=== PATIENT | male | born 1955 | race Caucasian/White ===

== ENCOUNTER → 2024-10-14 | Outpatient (CLI) | payer MEDICARE, SELFPAY ==
--- NOTE | 2024-10-14 08:55 | MRI_ITS ---
PROCEDURE: SPINE LUMBAR (ROUTINE) 10/14/2024 REASON FOR EXAM: PAIN TECHNIQUE: Multiplanar and multisequence images were obtained without IV contrast administration. FINDINGS: A mild rightward curvature noted. Appearance of multilevel spondylosis/discogenic change of the cervical spine is not well visualized what appears to be C4 through C7. No evidence of acute fracture. Susceptibility artifact from hardware, posterior fusion and bilateral transpedicular screws L3 and L4 limiting the evaluation. There appears to be laminectomies L3 through L5 and possibly partial at L2. Conus Medullaris: Conus appears to terminate at T12-L1 and appears within limits. Cauda equina appears within limits. L1-2: Appears within limits L2-3: Adjacent susceptibility artifact from L3 hardware. Question possibility of left-sided posterior Modic type degenerative endplate changes versus susceptibility artifact from hardware. A mild broad- based disc bulge is present mildly greater towards the left foramina which in combination with hypertrophic facet synovial appearing change results in a left-sided foraminal narrowing and possibly impinging on the exiting left L2 nerve for example sagittal 11. No right-sided foraminal narrowing. Bilateral facet hypertrophic change causes bilateral posterolateral canal narrowing without significant appearing compression for example axial 8. L3-4: Appearance of disc desiccation with mild loss of disc height. No significant appearing central or foraminal narrowing identified. L4-5: Minimal anterolisthesis L4 on L5. Disc desiccation with moderate loss of disc height appears greater towards the right side. Broad-based disc bulge without significant appearing central or foraminal narrowing identified. T1 low and T2 bright and stir bright Modic type endplate degenerative changes suggested. L5-S1: Spondylosis/discogenic change with a mild central disc bulge without significant appearing central or foraminal narrowing. Limited views of the retroperitoneum appear unremarkable. MRI/Spine Lumbar (Routine) IMPRESSION: Susceptibility artifact from hardware, posterior fusion and bilateral transpedi cular screws L3 and L4 limiting the evaluation. There appears to be laminectomies L3 through L5 and possibly partial at L2. Multilevel spondylosis/discogenic change as above. Reading Location: [id number]
== END | disposition home or self-care (01) ==
PROVIDERS: PCP Nurse Practitioner Family; Referring Provider Student in an Organized Health Care Education/Training Program; Visit Provider Student in an Organized Health Care Education/Training Program
DX: M48.061 Spinal stenosis, lumbar region without neurogenic claudication (principal); M51.369 Other intervertebral disc degeneration, lumbar region without mention of lumbar back pain or lower extremity pain
CPT/HCPCS: 72148

== ENCOUNTER 2024-12-25 14:48 | Inpatient (IN) | payer MEDICARE, SELFPAY ==
[2024-12-15 10:40] LABS: Hematocrit 48.1 % (40-54); Hemoglobin 16.4 g/dL (13.0-16.5); Immature Granulocytes Count 0.040 X10^3/uL (0.0-0.0); Mean Corp Hgb Conc 34.1 g/dL (32-36); Mean Corpuscular Volume 88.6 fL (80-94); Mean Platelet Vol. 8.6 fl (6.2-12.0); NRBC Flagged by Analyzer 0 % (0-5); Platelet Count 355 K/mm3 (150-450); RBC Distribution Width CV 14.5 % (11.6-14.6); RBC Distribution Width SD 46.5 fl (35.1-43.9); Red Blood Count 5.43 M/mm3 (4.6-6.2); White Blood Count 6.5 K/mm3 (4.4-11.0)
[2024-12-15 11:04] LABS: Partial Thromboplast Time 26.0 Seconds (24.1-36.2); Prothrombin Time (Protime)PT. 12.0 SECONDS (11.7-14.9)
[2024-12-15 11:23] LABS: AST(SGOT) 23 U/L (<=37); Alanine Aminotransfer ALT/SGPT 18 U/L (<=46); Albumin, Serum 4.1 g/dL (3.4-4.8); Alkaline Phosphatase 75 U/L (40-129); Bilirubin, Direct 0.26 mg/dL (0.00-0.30); Globulin 3.0 g/dL (2.2-4.2); Magnesium 1.6 mg/dL (1.5-2.2)
[2024-12-15 11:48] LABS: AST(SGOT) 23 U/L (<=37); Alanine Aminotransfer ALT/SGPT 18 U/L (<=46); Albumin, Serum 4.1 g/dL (3.4-4.8); Alkaline Phosphatase 75 U/L (40-129); Anion Gap 14 (5-15); BUN 11 mg/dL (4-19); BUN/Creat Ratio 12.5 RATIO (10-20); Calcium,Total 9.9 mg/dL (7.6-11.0); Carbon Dioxide 19.8 mmol/L (21.0-32.0); Chloride 99 mmol/L (98-108); Globulin 2.9 g/dL (2.2-4.2); Glucose 166 mg/dL (70-99); HIV Nonreactive (Nonreactive); Hepatitis C Antibody Nonreactive (Nonreactive); Potassium 4.2 mmol/L (3.3-5.1)
--- NOTE | 2024-12-18 14:55 | PAT.ANE_ITS ---
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 When Was Last Pacemaker Check QUESTION #4 FULL TEXT: You/Your Family Experience fever (hyperthermia) with Anesthesia Last Oral Intake Last Oral intake: Last Oral Intake NPO since Meds taken in AM with sips of water? Meds patient instructed to take am of surgery PONV PONV - insurance claims examiner: PONV - insurance claims examiner Female No 12/08/24 09:52 HX of Motion Sickness No 12/08/24 09:52 HX of N/V After Surgery No 12/08/24 09:52 Non-Smoker Yes 12/08/24 09:52 Duration of Surgery greater Yes 12/08/24 09:52 than 60 minutes Number of Risk Factors 2 12/08/24 09:52 PONV Score Moderate Risk 12/08/24 09:52 Height & Weight Height & Weight: Anesthesia: Height & Weight Height 6 ft 10/24/24 08:28 Respiratory Assessment Respiratory Assessment - insurance claims examiner: Respiratory Tract Infection Hx - insurance claims examiner Hx Respiratory Tract Infection No 12/08/24 09:52 STOP Sleep Apnea STOP Sleep Apnea - insurance claims examiner: STOP Sleep Apnea - insurance claims examiner Hx Hypertension Yes: CONTROLLED WITH MED 12/08/24 09:52 Hx Sleep Apnea No 12/08/24 09:52 CPAP BIPAP Do you snore loudly (louder No 12/08/24 09:52 than talking or can be heard Do you often feel tired/ No 12/08/24 09:52 fatigued/ sleepy during daytime? Has anyone observed you stop No 12/08/24 09:52 breathing during sleep? STOP Results Negative 12/08/24 09:52 QUESTION #5 FULL TEXT : Do you snore loudly (louder than talking or can be heard through closed doors)? 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 Specify any problems Hx of Preganancy in last 3 N/A 12/08/24 09:52 Months Nurse Filling Out Transfusion DSCHRIBER 12/08/24 09:52 & Questions: Date: 12/08/24 12/08/24 09:52 Time: 09:54 12/08/24 09:52 Patient unable to answer at this time (ie. confused, unrespo /Reproduction History /Reproductive History - insurance claims examiner: /Reproductive Hx- insurance claims examiner Hx Now No 12/08/24 09:52 Gestational Age (in weeks): EDC: Hx Hx Para Hx Section SAB No 12/08/24 09:52 PFSH Medical History (Updated 12/08/24 @ 10:03 by Lucila Vega) Wears glasses Wears dentures Alcohol use Redness of skin Insulin dependent diabetes mellitus Arthritis High cholesterol Restless legs Back pain Dietary restriction Heartburn Former smoker Leg cramps History of edema Neuropathy Hypertension Home Medications ?Medication ?Instructions ?Recorded ?Last Taken ?Type insulin glargine 100 unit/mL 10 unit subcut BID DIABET ES 09/15/24 Unknown History subcutaneous solution (Lantus U-100 Insulin) insulin lispro 100 unit/mL 1 sliding scale dose subcut 09/15/24 Unknown History subcutaneous pen USEASDIRECTD DIABETES lisinopril 5 mg tablet 5 mg PO QDAY BP 09/15/24 Unk nown History metformin 500 mg tablet 500 mg PO BID DIABETES 09/15 Unknown History lorazepam 1 mg tablet (Ativan) 1 mg PO BID PRN claustr ophobia #2 09/20/24 Unknown Rx tabs Allergy/AdvReac Type Severity Reaction Status Date / Time meperidine (From Demerol) Allergy Mild Nausea/Vom/ Verified 12/08/24 09:48 Diarrhea Surgical History (Updated 12/08/24 @ 10:03 by Lucila Vega) History of back surgery Hx of left cataract extraction Hx of right cataract extraction History of lumbosacral spine surgery H/O left knee surgery H/O right knee surgery Social History Smoking Status: Former smoker alcohol intake: current alcohol intake frequency: 0-2 drinks per day substance use type: does not use Audit: Pertinent Findings Pertinent Findings EKG Perinent findings: December 15, 2024. Normal sinus rhythm. Possible left atrial enlargement. Left bundle branch block. Recommendation Anesthesia Recommendation Anesthesia recommendation: OPTIMIZED for anesthesia
[2024-12-25] VITALS (18 sets, daily range): BP systolic 137–169; BP diastolic 72–100; PULSE 75–102; RESP 16–20; TEMP 36.4–37.2; O2SAT 95–99; BMI 24.8
--- OUTSIDE RECORDS SUMMARY | 2024-12-25 05:16 | XMS RPT_ITS | CCD ---
Author Organization [facility] Care Team Providers Care Winch Runner Name Role Phone Ang Ramirez MD Unavailable BALA RUEDA-COMMUNITY SERVICE PATROL OFFICERSAIRA Primary Care Physicia n BALA PARTITION ASSEMBLY MACHINE OPERATOR-SCOTT, SAIRA Roberts Primary Care Unava sara VIZCAINO MD, ANT Lane Attending Unavailable Maria A Ruiz Attending Provider Dr. Jacek Deleon MD Attending Provider Maria A Ruiz Referring Provider Bala CULTURED MARBLE PRODUCTS MAKER-CSaira Primary Care Provider Bala C[employer]URED [employer] MAKER-CSaira Referring Provider [phone] SAIRA PECK CNP Primary Care Unavailable SAIRA PECK CNP Consulting Unavailable SAIRA PECK CNP Attending Unavailable SAIRA PECK CNP Admitting Unavailable PROVIDER, UNKNOWN Consulting Unavailable PROVIDER, UNKNOWN Consulting Unavailable SAIRA PECK CNP Primary Care Unavailable SAIRA PECK CNP Consulting Unavailable SAIRA PECK CNP Attending Unavailable SAIRA PECK CNP Admitting Unavailable PROVIDER, UNKNOWN Consulting Unavailable PROVIDER, UNKNOWN Consulting Unavailable SAIRA PECK CNP Primary Care Unavailable SAIRA PECK CNP Consulting Unavailable SAIRA PECK CNP Attending Unavailable SAIRA PECK CNP Admitting Unavailable PROVIDER, UNKNOWN Consulting Unavailable PROVIDER, UNKNOWN Consulting Unavailable Doron MORILLO, Dr. Londono Attending Provider Saira Peck Referring Unavailable Bry Sal Attending Unavailable Saira Peck Primary Care Unavailable Maria A Chung Attending Unavailable Jacek Deleon Attending Unavailable Bry Sal Referring Unavailable Carmela Ace Attending Unavailable Saira Peck Primary Care Unavailable Bry Sal Admitting Unavailable Bry Sal Attending Unavailable Doron Bry Referring Unavailable Saira Peck Primary Care Unavailable Saira Peck Primary Care Unavailable Maria A Chung Attending Unavailable Maria A Chung Referring Unavailable Saira Peck Referring Unavailable Maria A Chung Attending Unavailable Saira Peck Primary Care Unavailable Allergies Allergy Classification Reported Allergen(s) Allergy Type Date of Onset Reaction(s) Facility (1 source) Meperidine Drug Allergy 2 Years ago, had cold sweats and light headedness. [facility] Work Phone: (3 sources) Meperidine; Translations: [meperidine] Drug Allergy 5 Nausea/Vom/Diar [facility] (1 source) Meperidine Drug Allergy [facility] Repository (1 source) Meperidine Drug Allergy 5 [facility] Repository Medications Current Medications Medication Drug Class(es) Dates Sig (Normalized) Sig (Original) 3 ml insulin aspart, human 100 unt/ml pen injector (2 sources) Insulin Analog Start: 01-21-2020 NovoLOG FlexPen 100 units/mL injectable solution Sliding Scale, Subcutaneous, TIDAC Start Date: 01/21/20 Status: Ordered NOVOLOG RELION 1 00 UNIT/ML SOLN 18 unit subcutaneously once a day insulin aspart u-100 [id number] Betsey Pulido PULP COOKER 3 ml insulin detemir 100 unt/ml pen injector (2 sources) Insulin Analog Start: 01-21-2020 inject 1 dose by subcutaneous injection once daily at bedtime Levemir FlexTouch 100 units/mL 3 mL Pen Dose : 20 unit(s) =, Subcutaneous, qHS Start Date: 01/21/20 Status: Ordered inject 20 [IU] by rodriguez bcutaneous injection once daily LEVEMIR 100 UNIT/ML SOLN 20 unit subcutaneously once a day insulin detemir u-100 [id number] Betsey Pulido PULP COOKER Insulin Glargine (Lantus U-1 00 Insulin) 100 unit/mL solution (2 sources) Start: 09-15-2024 Insulin Glargi ne (Lantus U-100 Insulin) 100 unit/mL solution Active 10 U SC TWICE A DAY September 15, 2024 12:00am DIABETES Start: 09-15-2024 Insulin Glargi ne (Lantus U-100 Insulin) 100 unit/mL solution Active 10 U SC TWICE A DAY September 15, 2024 12:00am 3 ml insulin lispro 100 unt/ml pen injector (2 sources) Insulin Analog Start: 09-15-2024 Insulin Lispro 100 unit/mL insulin pen Active 1 sliding scale dose SC Use as Directed September 15, 2024 12:00am DIABETES lisinopril 5 mg oral tablet (4 sources) Angiotensin Converting Enzyme Inhibitor Start: 09-15-2024 take 1 tablet by mouth once daily Lisinopril 5 mg tablet Active 5 mg PO daily September 15, 2024 12:00am BP Start: 01-21-2020 lisinopril 5 m g oral tablet Dose : 5 mg = 1 tab(s), Oral, qAM Start Date: 01/21/20 Status: Ordered LORazepam 1 mg oral tablet (2 sources) Benzodiazepine Start: 09-20-2024 Lorazepam (Ati van) 1 mg tablet Active 1 mg PO TWICE A DAY as needed for claustrophobia 2 0 September 20, 2024 12:00am take 1 tablet one hour before the MRI, take second tablet when you arrive for the MRI metFORMIN hydrochloride 500 mg oral tablet (3 sources) Biguanide Start: 09-15-2024 take 1 tablet by mouth twice daily Metformin 500 mg tablet Active 500 mg PO TWICE A DAY September 15, 2024 12:00am DIABETES take 1 tablet by mouth twice edward ly METFORMIN HCL 1000 MG TABS 1 tablet by mouth twice a day metformin [id number] Betsey Pulido LPN Multiple Vitamins oral tablet (1 source) Start: 01-21-2020 take 1 tablet by mouth once daily Multiple Vitamins oral tablet Dose = 1 tab(s), Oral, qDay Start Date: 01/21/20 Status: Ordered Completed/Discontinued Medications Medication Drug Class(es) Dates Sig (Normalized) Sig (Original) methocarbamol 500 mg oral tablet (2 sources) Muscle Relaxant Start: 09-15-2024 End: 12-08-2024 take 1 tablet by mouth three times daily as needed for pain Methocarbamol 500 mg tablet Discontinued 500 mg PO THREE TIMES A DAY as needed for pain/spasms 60 0 September 15, 2024 12:00am December 08, 2024 9:49am Problems Active Problems Problem Classification Problem Date Documented Date Episodic/Chronic Diabetes mellitus without complication (2 sources) Latent autoimmune diabetes mellitus in adult; Translations: [Other specified diabetes mellitus without complications] 09-15-2024 Chronic Essential hypertension (2 sources) Hypertensive disorder; Translations: [Essential (primary) hypertension] 09-15-2024 Chronic Other acquired deformities (1 source) Scoliosis of lumbar spine; Translations: [Scoliosis, unspecified] Onset: 09-08-2021 09-08-2021 Chronic Other acquired deformities (1 source) Lumbar spondylolisthesis; Translations: [Spondylolisthesis, lumbar region] Onset: 09-08-2021 09-08-2021 Episodic Other connective tissue disease (5 sources) History of lumbar fusion; Translations: [Arthrodesis status] 09-15-2024 Episodic Spondylosis; intervertebral disc disorders; other back problems (7 sources) Disorder of lumbar spine; Translations: [Adjacent segment disease of lumbar spine with history of fusion procedure] 09-15-2024 Chronic Spondylosis; intervertebral disc disorders; other back problems (11 sources) Stenosis of lumbar vertebral foramen; Translations: [Spinal stenosis, lumbar region without neurogenic claudication] Onset: 08-15-2021 09-08-2021 Episodic Unclassified (2 sources) M48.061 - Spinal stenosis, lumbar region without neurogenic claudication,M51.369 - Other intervertebral disc degeneration, lumbar region without mention of lumbar back pain or lower extremity pain Unclassified (1 source) Spinal stenosis of lumbar region without neurogenic claudication Unclassified (1 source) Degeneration of intervertebral disc of lumbar region Unclassified (1 source) Low back pain, unspecified; Translations: [Low back pain, unspecified] Onset: 10-09-2024 Unclassified (1 source) Other intervertebral disc degeneration, lumbar region without mention of lumbar back pain or lower extremity pain; Translations: [Other intervertebral disc degeneration, lumbar region without mention of lumbar back pain or lower extremity pain] Onset: 09-15-2024 Past or Other Problems Problem Classification Problem Date Documented Da te Episodic/Chronic Fluid and electrolyte disorders (2 sources) Hypo-osmolality and or hyponatremia; Translations: [Hypo-osmolality and hyponatremia] Onset: 02-23-2024 Episodic Unclassified (1 source) Problem Results Test Name Value Interpretation Reference Range Facility Orthopedic Visit Reporton Orthopedic Visit Report [facility] [address] [place] [address] OFFICE VISIT Date of Service: 12/19/24 MR#: [id number] Acct: [id number] Name: MARIELLA WINCHESTER Rep #: [id number] : 1955 Provider: Dr. Bry Sal MD Age/Sex: 68/M Location: [facility] Status: Signed Intake Vital Signs 10/24/24 08:28 12/19/24 08:55 Height 6 ft 6 ft Weight: 180 lb 180 lb BMI 24.4 24.4 Intake Visit Reasons: lumbar spine Chief Complaint: lumbar spine Pre op Accompanied by: Self Is patient in pain?: Yes Pain scale (1-10): 5 Allergies meperidine (From Demerol) Allergy (Mild, Verified 12/19/24 09:01) Nausea/Vom/Diarrhea Medications ???Medication ???Instructions ???Recorded ???Confirmed ???Type insulin glargine 100 unit/mL 10 unit subcut BID DIABETES 12/19/24 History subcutaneous solution (Lantus U-100 Insulin) insulin lispro 100 unit/mL 1 sliding scale dose subcut 12/19/24 History subcutaneous pen USEASDIRECTD DIABETES lisinopril 5 mg tablet 5 mg PO QDAY BP 09/15/24 12/19/24 History metformin 500 mg tablet 500 mg PO BID DIABETES 09/15/24 History lorazepam 1 mg tablet (Ativan) 1 mg PO BID PRN claustrophobia #2 09/20/24 12/19/24 Rx tabs Have you fallen in the past year?: No PFSH Medical History Wears glasses Wears dentures Alcohol use Redness of skin Insulin dependent diabetes mellitus Arthritis High cholesterol Restless legs Back pain Dietary restriction Heartburn Former smoker Leg cramps History of edema Neuropathy Hypertension Surgical History History of back surgery Hx of left cataract extraction Hx of right cataract extraction History of lumbosacral spine surgery H/O left knee surgery H/O right knee surgery Social History Smoking Status: Former smoker alcohol intake: current alcohol intake frequency: 0-2 drinks per day substance use type: does not use HPI lumbar spine Details: This documentation accurately reflects the service provided and the decisions made by me, Dr. Bry Sal MD 12/19/24 0855. Part of today???s visit was documented by Angelica Loco MA, acting as scribe. MARIELLA WINCHESTER is a 68 year old M here today for lumbar spine pre op. Patient would like to know more about the surgery. He would like to know what he can and can't do after the surgery. Patient states that lately his pain has been more aggravating a little bit more. The pain is in the same spot on the right side of the lower back. He hasn't had any recent injections. Patient hasn't done any recent physicla therapy. The patient is a 68-year-old male presenting for evaluation and management of worsening lumbar spinal stenosis symptoms and preparation for upcoming spinal surgery. The patient reports increased difficulty in finding comfortable positions due to worsening pain, which now occurs even when lying down. The pain primarily affects the right side, radiating to the thigh and occasionally down the leg, but not below the knee. He is limited to walking approximately 100 yards before needing to rest due to pain and tightness in the back. The patient has a history of lumbar fusion surgery at L3-4 performed 20 years ago due to similar symptoms, although the current symptoms are more severe. Previous interventions included a laminectomy to relieve nerve compression. The patient also reports significant knee osteoarthritis, with a history of multiple surgeries including patellar and meniscal repairs, but no knee replacements. He experiences swelling and requires assistance from railings when navigating stairs due to knee pain. The patient has diabetes mellitus, managed with insulin, with a recent HbA1c of 6.5%. He denies smoking and reports good nutritional intake, including calcium supplements. - Musculoskeletal: Reports worsening back pain, radiating to the right thigh, with difficulty walking more than 100 yards. Denies pain below the knee. - Musculoskeletal: Reports knee pain with swelling, requiring assistance from railings when using stairs. - Endocrine: Reports diabetes mellitus, managed with insulin. - General: Denies smoking. Attestation: Documentation on this patient encounter was supported using ambient scribe technology/ voice AI technology. The patient consented to recording for the purpose of documenting the encounter. Provider reviewed content of the generated note prior to signature. 10/24/24: MARIELLA WINCHESTER is a 68 year old M here today for lumbar spine MRI review. Patient would like to go over the MRI to discuss what the next step is. He den (more content not included)... 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 When Was Last Pacemaker Check QUESTION #4 FULL TEXT: You/Your Family Experience fever (hyperthermia) with Anesthesia Last Oral Intake Last Oral intake: Last Oral Intake NPO since Meds taken in AM with sips of water? 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 Female No 12/08/24 09:52 HX of Motion Sickness No 12/08/24 09:52 HX of N/V After Surgery No 12/08/24 09:52 Non-Smoker Yes 12/08/24 09:52 Duration of Surgery greater Yes 12/08/24 09:52 than 60 minutes Number of Risk Factors 2 12/08/24 09:52 PONV Score Moderate Risk 12/08/24 09:52 Height Weight Height Weight: Anesthesia: Height Weight Height 6 ft 10/24/24 08:28 Respiratory Assessment Respiratory Assessment - rock climbing instructor: Respiratory Tract Infection Hx - rock climbing instructor Hx Respiratory Tract Infection No 12/08/24 09:52 STOP Sleep Apnea STOP Sleep Apnea - rock climbing instructor: STOP Sleep Apnea - rock climbing instructor Hx Hypertension Yes: CONTROLLED WITH MED 12/08/24 09:52 Hx Sleep Apnea No 12/08/24 09:52 CPAP BIPAP Do you snore loudly (louder No 12/08/24 09:52 than talking or can be heard Do you often feel tired/ No 12/08/24 09:52 fatigued/ sleepy during daytime? Has anyone observed you stop No 12/08/24 09:52 breathing during sleep? STOP Results Negative 12/08/24 09:52 QUESTION #5 FULL TEXT : Do you snore loudly (louder than talking or can be heard through closed doors)? 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 Specify any problems Hx of Preganancy in last 3 N/A 12/08/24 09:52 Months Nurse Filling Out Transfusion DSCHRIBER 12/08/24 09:52 Questions: Date: 12/08/24 12/08/24 09:52 Time: 09:54 12/08/24 09:52 Patient unable to answer at this time (ie. 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: /Reproduct pavithra Hx- rock climbing instructor Hx Now No 12/08/24 09:52 Gestational Age (in weeks): EDC: Hx Hx Para Hx Section SAB No 12/08/24 09:52 [facility] Medical History (Updated 12/08/24 @ 10:03 by Lucila Vega) Wears glasses Wears dentures Alcohol use Redness of skin Insulin dependent diabetes mellitus Arthritis High cholesterol Restless legs Back pain Dietary restriction Heartburn Former smoker Leg cramps History of edema Neuropathy Hypertension Home Medications ???Medication ???Instructions ???Recorded ???Last Taken ???Type insulin glargine 100 unit/mL 10 unit subcut BID DIABETES Unknown History subcutaneous solution (Lantus U-100 Insulin) insulin lispro 100 unit/mL 1 sliding scale dose subcut Unknown History subcutaneous pen USEASDIRECTD DIABETES lisinopril 5 mg tablet 5 mg PO QDAY BP 09/15/24 Unknown H istory metformin 500 mg tablet 500 mg PO BID DIABETES 09/15/24 Un known His (more content not included)... Normal [facility] Hepatitis A AB, Totalon 11-28 HEPATITIS A,TOT Negative Normal Negative [facility] Comment on above: Order Comment: SEND CBC, CMP TO Result Comment: Comm ent: The HAV total antibody assay detects both IgG and IgM but does not differentiate between them. A negative result suggests susceptibility to infection. A positive result could be due to vaccination, previously resolved infection or active infection. Testing for HAV IgM should be performed if active HAV infection is suspected. [facility] offers profiles that will automatically reflex positive HAV total antibody results to IgM (e.g., panel #[id number] HAV Antibody w/ Rfx). Performed at: [address] [id number] Moving Picture Operator: Michael Ba PhD, Phone: [phone] Performed By: #### B TSPAT, L3890.6006, L3890.3521, L501.9985, L3100.0300, M100.651, L500.4050, L100.0100, L3890.6202 ####[facility] [address] [place], [place], [id number] MRSA/SAID NASAL SCREENon MRSA+SAID SCRN SEND CBC, CMP TO Reason for Exam: Surgery MRSA MRSA Negative S. AUREUS S. aureus PositiveA Normal [facility] Comment on above: Performed By: #### B TSPAT, L3890.6006, L3890.6301, L501.9985, L3100.0300, M100.651, L500.4050, L100.0100, L3890.6202 ####[facility] [address] [place], [address] CBC W/Diff, Automatedon 11-28 Absolute Lymph 0.68 X10 3/uL Low 0.83-4.51 [facility] Comment on above: Order Comment: SEND CBC, CMP TO Performed By: #### B TSPAT, L3890.6006, L3890.6301, L501.9985, L3100.0300, M100.651, L500.4050, L100.0100, L3890.6202 #### [facility] [address] [place], [address] Absolute Neut 4.8 X10 3/uL Normal 2.0-7.7 [facility] Comment on above: Order Comment: SEND CBC, CMP TO Performed By: #### B TSPAT, L3890.6006, L3890.6301, L501.9985, L3100.0300, M100.651, L500.4050, L100.0100, L3890.6202 #### [facility] [address] [place], [address] Basophils/100 WBC (Bld) 0.9 % Normal 0-1 [facility] Comment on above: Order Comment: SEND CBC, CMP TO Performed By: #### B TSPAT, L3890.6006, L3890.6301, L501.9985, L3100.0300, M100.651, L500.4050, L100.0100, L3890.6202 #### [facility] [address] [place], [address] Eosinophils/100 WBC (Bld) 4.0 % Normal 0-5 [facility] Comment on above: Order Comment: SEND CBC, CMP TO Performed By: #### B TSPAT, L3890.6006, L3890.6301, L501.9985, L3100.0300, M100.651, L500.4050, L100.0100, L3890.6202 #### [facility] [address] [place], [address] Erythrocyte distribution width (RBC) [Ratio] 14.5 % Normal 11.6-14.6 [facility] Comment on above: Order Comment: SEND CBC, CMP TO Performed By: #### B TSPAT, L3890.6006, L3890.6301, L501.9985, L3100.0300, M100.651, L500.4050, L100.0100, L3890.6202 #### [facility] [address] [place], [address] Hematocrit (Bld) [Volume fraction] 48.1 % Normal 40-54 [facility] Comment on above: Order Comment: SEND CBC, CMP TO Performed By: #### B TSPAT, L3890.6006, L3890.6301, L501.9985, L3100.0300, M100.651, L500.4050, L100.0100, L3890.6202 #### [facility] [address] [place], [address] Hemoglobin (Bld) [Mass/Vol] 16.4 g/dL Normal 13.0-16.5 [facility] Comment on above: Order Comment: SEND CBC, CMP TO Performed By: #### B TSPAT, L3890.6006, L3890.6301, L501.9985, L3100.0300, M100.651, L500.4050, L100.0100, L3890.6202 #### [facility] [address] [place], [address] IG% 0.600 Normal 0.0-0.9 [facility] Comment on above: Order Comment: SEND CBC, CMP TO Result Comment: IG% - Immature Granulocytes (promyelocytes, myelocytes and metamyelocytes) > 1% indicates that a LEFT SHIFT is Present. Performed By: #### B TSPAT, L3890.6006, L3890.6301, L501.9985, L3100.0300, M100.651, L500.4050, L100.0100, L3890.6202 #### [facility] [address] [place], [address] Lymphocytes/100 WBC (Bld) 10.4 % Low 19-41 [facility] Comment on above: Order Comment: SEND CBC, CMP TO Performed By: #### B TSPAT, L3890.6006, L3890.6301, L501.9985, L3100.0300, M100.651, L500.4050, L100.0100, L3890.6202 #### [facility] [address] [place], [address] MCH (RBC) [Entitic mass] 30.2 pg Normal 27.0-32.0 [facility] Comment on above: Order Comment: SEND CBC, CMP TO Performed By: #### B TSPAT, L3890.6006, L3890.6301, L501.9985, L3100.0300, M100.651, L500.4050, L100.0100, L3890.6202 #### [facility] [address] [place], [address] MCHC (RBC) [Mass/Vol] 34.1 g/dL Normal 32-36 [facility] Comment on above: Order Comment: SEND CBC, CMP TO Performed By: #### B TSPAT, L3890.6006, L3890.6301, L501.9985, L3100.0300, M100.651, L500.4050, L100.0100, L3890.6202 #### [facility] [address] [place], [address] MCV (RBC) [Entitic vol] 88.6 fL Normal 80-94 [facility] Comment on above: Order Comment: SEND CBC, CMP TO Performed By: #### B TSPAT, L3890.6006, L3890.6301, L501.9985, L3100.0300, M100.651, L500.4050, L100.0100, L3890.6202 #### [facility] [address] [place], [address] Monocytes/100 WBC (Bld) 11.5 % High 0-10 [facility] Comment on above: Order Comment: SEND CBC, CMP TO Performed By: #### B TSPAT, L3890.6006, L3890.6301, L501.9985, L3100.0300, M100.651, L500.4050, L100.0100, L3890.6202 #### [facility] [address] [place], [address] Neutrophils/100 WBC (Bld) 72.6 % High 47-70 [facility] Comment on above: Order Comment: SEND CBC, CMP TO Performed By: #### B TSPAT, L3890.6006, L3890.6301, L501.9985, L3100.0300, M100.651, L500.4050, L100.0100, L3890.6202 #### [facility] [address] [place], [address] Nucleated RBC (Bld) [#/Vol] 0 10*3/uL Normal 0-5 [facility] Comment on above: Order Comment: SEND CBC, CMP TO Performed By: #### B TSPAT, L3890.6006, L3890.6301, L501.9985, L3100.0300, M100.651, L500.4050, L100.0100, L3890.6202 #### [facility] [address] [place], [address] Platelet mean volume (Bld) [Entitic vol] 8.6 fL Normal 6.2-12.0 [facility] Comment on above: Order Comment: SEND CBC, CMP TO Performed By: #### B TSPAT, L3890.6006, L3890.6301, L501.9985, L3100.0300, M100.651, L500.4050, L100.0100, L3890.6202 #### [facility] [address] [place], [address] Platelets (Bld) [#/Vol] 355 10*3/uL Normal 150-450 [facility] Comment on above: Order Comment: SEND CBC, CMP TO Performed By: #### B TSPAT, L3890.6006, L3890.6301, L501.9985, L3100.0300, M100.651, L500.4050, L100.0100, L3890.6202 #### [facility] [address] [place], [address] RBC (Bld) [#/Vol] 5.43 10*6/uL Normal 4.6-6.2 [facility] Comment on above: Order Comment: SEND CBC, CMP TO Performed By: #### B TSPAT, L3890.6006, L3890.6301, L501.9985, L3100.0300, M100.651, L500.4050, L100.0100, L3890.6202 #### [facility] [address] [place], [address] ( RDW SD 46.5 fl High 35.1-43.9 [facility] Comment on above: Order Comment: SEND CBC, CMP TO Performed By: #### B TSPAT, L3890.6006, L3890.6301, L501.9985, L3100.0300, M100.651, L500.4050, L100.0100, L3890.6202 #### [facility] [address] [place], [address] WBC (Bld) [#/Vol] 6.5 10*3/uL Normal 4.4-11.0 [facility] Comment on above: Order Comment: SEND CBC, CMP TO Performed By: #### B TSPAT, L3890.6006, L3890.6301, L501.9985, L3100.0300, M100.651, L500.4050, L100.0100, L3890.6202 #### [facility] [address] [place], [address] Comprehensive Metabolic Prof nyon 12-15-2024 Albumin [Mass/Vol] 4.1 g/dL Normal 3.4-4.8 [facility] Comment on above: Order Comment: SEND CBC, CMP TO Performed By: #### B TSPAT, L3890.6006, L3890.6301, L501.9985, L3100.0300, M100.651, L500.4050, L100.0100, L3890.6202 #### [facility] [address] [place], [address] Albumin/Globulin [Mass ratio] 1.4 {ratio} Normal 0.9-2.4 [facility] Comment on above: Order Comment: SEND CBC, CMP TO Performed By: #### B TSPAT, L3890.6006, L3890.6301, L501.9985, L3100.0300, M100.651, L500.4050, L100.0100, L3890.6202 #### [facility] [address] [place], [address] ALK PHOS 75 U/L Normal 40-129 [facility] Comment on above: Order Comment: SEND CBC, CMP TO Performed By: #### B TSPAT, L3890.6006, L3890.6301, L501.9985, L3100.0300, M100.651, L500.4050, L100.0100, L3890.6202 #### [facility] [address], [place], [id number] (123) ALT [Catalytic activity/Vol] 18 U/L Normal <=46 [facility] Comment on above: Order Comment: SEND CBC, CMP TO Performed By: #### B TSPAT, L3890.6006, L3890.6301, L501.9985, L3100.0300, M100.651, L500.4050, L100.0100, L3890.6202 #### [facility] [address], [place], [id number] (771) AST [Catalytic activity/Vol] 23 U/L Normal <=37 [facility] Comment on above: Order Comment: SEND CBC, CMP TO Performed By: #### B TSPAT, L3890.6006, L3890.6301, L501.9985, L3100.0300, M100.651, L500.4050, L100.0100, L3890.6202 #### [facility] [address], [place], [id number] (007) Bilirubin [Mass/Vol] 0.63 mg/dL Normal 0.00-1.30 [facility] Comment on above: Order Comment: SEND CBC, CMP TO Performed By: #### B TSPAT, L3890.6006, L3890.6301, L501.9985, L3100.0300, M100.651, L500.4050, L100.0100, L3890.6202 #### [facility] [address] [place], [address] BUN/CRE 12.5 RATIO Normal 10-20 [facility] Comment on above: Order Comment: SEND CBC, CMP TO Performed By: #### B TSPAT, L3890.6006, L3890.6301, L501.9985, L3100.0300, M100.651, L500.4050, L100.0100, L3890.6202 #### [facility] [address] [place], [address] Calcium [Mass/Vol] 9.9 mg/dL Normal 7.6-11.0 [facility] Comment on above: Order Comment: SEND CBC, CMP TO Performed By: #### B TSPAT, L3890.6006, L3890.6301, L501.9985, L3100.0300, M100.651, L500.4050, L100.0100, L3890.6202 #### [facility] [address] [place], [address] Chloride [Moles/Vol] 99 mmol/L Normal 98-108 [facility] Comment on above: Order Comment: SEND CBC, CMP TO Performed By: #### B TSPAT, L3890.6006, L3890.6301, L501.9985, L3100.0300, M100.651, L500.4050, L100.0100, L3890.6202 #### [facility] [address] [place], [address] CO2 [Moles/Vol] 19.8 mmol/L Low 21.0-32.0 [facility] Comment on above: Order Comment: SEND CBC, CMP TO Performed By: #### B TSPAT, L3890.6006, L3890.6301, L501.9985, L3100.0300, M100.651, L500.4050, L100.0100, L3890.6202 #### [facility] [address], [place], [id number] Creatinine [Mass/Vol] 0.86 mg/dL Normal 0.70-1.20 [facility] Comment on above: Order Comment: SEND CBC, CMP TO Performed By: #### B TSPAT, L3890.6006, L3890.6301, L501.9985, L3100.0300, M100.651, L500.4050, L100.0100, L3890.6202 #### [facility] [address], [place], [id number] GAP 14 Normal 5-15 [facility] Comment on above: Order Comment: SEND CBC, CMP TO Performed By: #### B TSPAT, L3890.6006, L3890.6301, L501.9985, L3100.0300, M100.651, L500.4050, L100.0100, L3890.6202 #### [facility] [address], [place], [id number] GFR/1.73 sq M.predicted among non-blacks MDRD (S/P/Bld) [Vol rate/Area] 94 mL/min/{1.73_m2} Normal >60 [facility] Comment on above: Order Comment: SEND CBC, CMP TO Result Comment: mL/m in/1.73m2 CKD-EPI Creatinine Equation (2020) Performed By: #### B TSPAT, L3890.6006, L3890.6301, L501.9985, L3100.0300, M100.651, L500.4050, L100.0100, L3890.6202 #### [facility] [address] [place], [address] Globulin (S) [Mass/Vol] 2.9 g/dL Normal 2.2-4.2 [facility] Comment on above: Order Comment: SEND CBC, CMP TO Performed By: #### B TSPAT, L3890.6006, L3890.6301, L501.9985, L3100.0300, M100.651, L500.4050, L100.0100, L3890.6202 #### [facility] [address] [place], [address] Glucose [Mass/Vol] 166 mg/dL High 70-99 [facility] Comment on above: Order Comment: SEND CBC, CMP TO Performed By: #### B TSPAT, L3890.6006, L3890.6301, L501.9985, L3100.0300, M100.651, L500.4050, L100.0100, L3890.6202 #### [facility] [address] [place], [address] Potassium [Moles/Vol] 4.2 mmol/L Normal 3.3-5.1 [facility] Comment on above: Order Comment: SEND CBC, CMP TO Performed By: #### B TSPAT, L3890.6006, L3890.6301, L501.9985, L3100.0300, M100.651, L500.4050, L100.0100, L3890.6202 #### [facility] [address] [place], [address] Sodium [Moles/Vol] 133 mmol/L Normal 133-145 [facility] Comment on above: Order Comment: SEND CBC, CMP TO Performed By: #### B TSPAT, L3890.6006, L3890.6301, L501.9985, L3100.0300, M100.651, L500.4050, L100.0100, L3890.6202 #### [facility] [address] [place], [place], [id number] T PROT 7.0 g/dL Normal 5.9-8.4 [facility] Comment on above: Order Comment: SEND CBC, CMP TO Performed By: #### B TSPAT, L3890.6006, L3890.6301, L501.9985, L3100.0300, M100.651, L500.4050, L100.0100, L3890.6202 #### [facility] [address] [place] [place], [address] Urea nitrogen [Mass/Vol] 11 mg/dL Normal 4-19 [facility] Comment on above: Order Comment: SEND CBC, CMP TO Performed By: #### B TSPAT, L3890.6006, L3890.6301, L501.9985, L3100.0300, M100.651, L500.4050, L100.0100, L3890.6202 #### [facility] [address] [facility] [place], [place], [id number] HIVon 12-15-2024 HIV Non-Reactive Normal Nonreactive [facility] Comment on above: Order Comment: SEND CBC, CMP TO Result Comment: Non- Reactive Reactive Repeatedly reactive samples must be confirmed according to CDC recommended confirmatory algorithms. The subresults for either HIVAG or AHIV can be used as an aid in the selection of the confirmation algorithm for reactive samples. Send out specimens with Reactive results to [facility] for confirmation. Order the HIV antibody detection and differentiation: lc#[id number] Performed By: #### B TSPAT, L3890.6006, L3890.6301, L501.9985, L3100.0300, M100.651, L500.4050, L100.0100, L3890.6202 ####[facility] [address] [place], [place], [id number] Hemoglobin A1con 12-15-2024 HbA1c (Bld) [Mass fraction] 6.5 % High <=5.6 [facility] Comment on above: Order Comment: SEND CBC, CMP TO Result Comment: Norm al < 5.7 % Prediabetic 5.7 - 6.4 % Diabetic >or= 6.5 % Please note range changes. Performed By: #### B TSPAT, L3890.6006, L3890.6301, L501.9985, L3100.0300, M100.651, L500.4050, L100.0100, L3890.6202 ####[facility] [address] [place], [place], [id number] Hepatitis B Surface Antibody on 12-15-2024 HEP B Surf Ab Non-Reactive Normal [facility] Comment on above: Order Comment: SEND CBC, CMP TO Result Comment: <8.5 mIU/mL: Non-Reactive 8.5<= x <11.5 mIU/mL: Indeterminate >=11.5 mIU/mL: Reactive Non Reactive: Inconsistent with immunity less than <10 mIU/mL Reactive: Consistent with immunity greater than or equal to 10 mIU/mL Performed By: #### B TSPAT, L3890.6006, L3890.6301, L501.9985, L3100.0300, M100.651, L500.4050, L100.0100, L3890.6202 ####[facility] [address] [place], [place], [id number] Hepatitis C Antibodyon 12-15 Hepatitis C Ab Non-Reactive Normal Nonreactive [facility] Comment on above: Order Comment: SEND CBC, CMP TO Result Comment: Reac tive: Presumptive evidence of antibodies to HCV. Follow CDC recommendations for supplemental testing. Non-Reactive: Antibodies to HCV were not detected; does not exclude the possibility of exposure to HCV Reactive Results are presumptive evidence of antibodies to HCV. Follow CDC recommendations for supplemental testing. Order confirmation testing: HCV Quant by PCR testing - HCVPCR lc#[id number] Non Reactive: < 0.8 Equivocal: >/= 0.8 to < 1.0 Reactive: >/= 1.0 The CDC requires that a reactive/equivocal HCV antibody result be sent out for confirmation. HCV Quant by PCR testing. Performed By: #### B TSPAT, L3890.6006, L3890.6301, L501.9985, L3100.0300, M100.651, L500.4050, L100.0100, L3890.6202 ####[facility] [address] [place], [address] Liver Profileon 12-15-2024 Albumin [Mass/Vol] 4.1 g/dL Normal 3.4-4.8 [facility] Comment on above: Performed By: #### L 300.3900, L300.4310, L500.3400, L501.5200 #### [facility] [address] [place], [address] ALK PHOS 75 U/L Normal 40-129 [facility] Comment on above: Performed By: #### L 300.3900, L300.4310, L500.3400, L501.5200 #### [facility] [address] [place], [address] ALT [Catalytic activity/Vol] 18 U/L Normal <=46 [facility] Comment on above: Performed By: #### L 300.3900, L300.4310, L500.3400, L501.5200 #### [facility] [address] [place], [address] AST [Catalytic activity/Vol] 23 U/L Normal <=37 [facility] Comment on above: Performed By: #### L 300.3900, L300.4310, L500.3400, L501.5200 #### [facility] [address] [place], [address] Bilirubin [Mass/Vol] 0.61 mg/dL Normal 0.00-1.30 [facility] Comment on above: Performed By: #### L 300.3900, L300.4310, L500.3400, L501.5200 #### [facility] [address] [place], [address] Bilirubin.direct [Mass/Vol] 0.26 mg/dL Normal 0.00-0.30 [facility] Comment on above: Performed By: #### L 300.3900, L300.4310, L500.3400, L501.5200 #### [facility] [address] [place], [address] Globulin (S) [Mass/Vol] 3.0 g/dL Normal 2.2-4.2 [facility] Comment on above: Performed By: #### L 300.3900, L300.4310, L500.3400, L501.5200 #### [facility] [address] [place], [address] T PROT 7.1 g/dL Normal 5.9-8.4 [facility] Comment on above: Performed By: #### L 300.3900, L300.4310, L500.3400, L501.5200 #### [facility] [address] [place], [address] Magnesiumon 12-15-2024 Magnesium [Mass/Vol] 1.6 mg/dL Normal 1.5-2.2 [facility] Comment on above: Performed By: #### L 300.3900, L300.4310, L500.3400, L501.5200 #### [facility] [address] [place], [address] Partial Thromboplast Timeon 12-15-2024 aPTT Coag (Bld) [Time] 26.0 s Normal 24.1-36.2 [facility] Comment on above: Performed By: #### L 300.3900, L300.4310, L500.3400, L501.5200 #### [facility] [address] [place], [address] Prothrombin Time w/INRon INR Coag (PPP) [Relative time] 0.9 {INR} Normal [facility] Comment on above: Performed By: #### L 300.3900, L300.4310, L500.3400, L501.5200 #### [facility] [address] [place], [address] PT Coag (PPP) [Time] 12.0 s Normal 11.7-14.9 [facility] Comment on above: Performed By: #### L 300.3900, L300.4310, L500.3400, L501.5200 #### [facility] [address] [place], [address] Type AND Screen - PAT ONLYon 12-15-2024 ABO and Rh group Nom (Bld) Blood group A Rh(D) positive Normal [facility] Comment on above: Order Comment: SEND CBC, CMP TO urgery Date: 12/25/24Reason for Laboratory Test [id number]/ANNSLUMBAR FUSION Performed By: #### B TSPAT, L3890.6006, L3890.6301, L501.9985, L3100.0300, M100.651, L500.4050, L100.0100, L3890.6202 ####[facility] [address] [place], [address] Orthopedic Visit Reporton Orthopedic Visit Report [facility] [address] [place] [address] [address] [place] [address] OFFICE VISIT Date of Service: 10/24/24 MR#: [id number] Acct: [id number] Name: MARIELLA WINCHESTER Rep #: [id number] : 1955 Provider: AVTAR Montanez Age/Sex: 68/M Location: [facility] Status: Signed Intake Vital Signs 10/24/24 08:28 Height 6 ft Weight: 180 lb BMI 24.4 Intake Visit Reasons: LUMBAR SPINE Chief Complaint: lumbar spine MRI review Accompanied by: Self Is patient in pain?: Yes Pain scale (1-10): 5 Allergies meperidine (From Demerol) Allergy (Mild, Verified 10/24/24 08:36) Nausea/Vom/Diarrhea Medications ???Medication ???Instructions ???Recorded ???Confirmed ???Type insulin glargine 100 unit/mL 10 unit subcut BID 09/15/24 History subcutaneous solution (Lantus U-100 Insulin) insulin lispro 100 unit/mL 1 sliding scale dose subcut 10/24/24 History subcutaneous pen USEASDIRECTD lisinopril 5 mg tablet 5 mg PO QDAY 09/15/24 10/24/24 His tory metformin 500 mg tablet 500 mg PO BID 09/15/24 10/24/24 Hi story methocarbamol 500 mg tablet 500 mg PO TID PRN pain/spasms #60 09/15/24 10/24/24 Rx tabs lorazepam 1 mg tablet (Ativan) 1 mg PO BID PRN claustrophobia #2 09/20/24 10/24/24 Rx tabs Have you fallen in the past year?: No PFSH Surgical History History of lumbosacral spine surgery H/O left knee surgery H/O right knee surgery Social History Smoking Status: Former smoker alcohol intake: current alcohol intake frequency: 0-2 drinks per day substance use type: does not use HPI LUMBAR SPINE Details: This documentation accurately reflects the service provided and the decisions made by , AVTAR Montanez 10/24/24 0828. Part of today???s visit was documented by Angelica Loco MA, acting as scribe. MARIELLA WINCHESTER is a 68 year old M here today for lumbar spine MRI review. Patient would like to go over the MRI to discuss what the next step is. He denies any recent injections or physical therapy since his last visit. Patient states that every day the pain gets worse, and seems like there is a new sore spot. So that on occasion he does get some left-sided anterior thigh pain, all of his radicular symptoms do not appear to be consistent and changes on a daily basis. Patient reports a prior varicocelectomy on the right side with a small right sided groin incision. HPI from 09/15/24: MARIELLA WINCHESTER is a 68 year old M here today for lumbar spine. Pt. reports his low back pain began after pulling weeds 25 years ago and he had a lumbar surgery shortly after. He states his low back progressively worsened and he had another lumbar surgery 3 years ago where had a L3-4 fusion at the [facility] by Dr. Gardner. He states the surgery was helpful for 9 months. He states his low back is painful equal across and worsens with weight bearing. Says that he gets very tight low back pain and says that after about 100 steps he says that he gets worsening back pain and he has to sit down and lean forward in order to resolve this pain. Says that after the pain gets better he is able to then walk for another 100 steps before once again needing to sit down. Says that he needs to lean on a shopping cart when going to a grocery store in order to make it further into the store. He says that he primarily has very tight low back pain which is worse in the morning and does get a little bit better throughout the day as he is moving. He also mentions that he can only stand for about 5 to 10 minutes due to the back pain before it worsens and he needs to sit down. The patient does not use a cane or walker. No physical therapy after his surgery. He states it is constantly tight and cracks frequently especially in the morning. He states his pain will intermittently will radiate down his bilateral thighs to his knees. He has been seen by a chiropractor which has not been helpful. He has not done PT recently. Hx of diabetes, last a1c was 6.8, no heart or lung issues, no blood thinners. Ortho Exam General General: Yes no acute distress Neurologic: Yes alert and Yes oriented x3 Spine SPINE TESTING CERVICAL THORACIC LUMBAR Musculoskeletal Strength 0=absent - 5=normal Details: Neurological exam of the lower extremities shows 5x5 power. Normal sensations across all dermatomes. No hyperreflexia. No midline or paraspinal tenderness. Physical examination of the back shows a well-healed midline incision. Coding Level of Care Code Off vis,est,level 4 Diagnoses History of lumbar fusion Z98.1 Adjacent segment disease of lumbar spine with history of fusion procedure M51.369; Z98.1 Lumbar stenosis wi (more content not included)... Normal [facility] Spine Lumbar (Routine)on Spine Lumbar (Routine) [facility] [address] [place], [place] [address] Spine Lumbar (Routine) MR#: [id number] Acct: [id number] Name: MARIELLA WINCHESTER Rep #: [id number] : 1955 M 68 From: Adair Stauffer MD PCP: Saira Peck NP-C Status: REG CLI Study: Spine Lumbar (Routine) Date of Exam: 10/14/24 Exam# [id number] Ordering Dr: Maria A Chung PROCEDURE: SPINE LUMBAR (ROUTINE) 10/14/2024 REASON FOR EXAM: PAIN TECHNIQUE: Multiplanar and multisequence images were obtained without IV contrast administration. FINDINGS: A mild rightward curvature noted. Appearance of multilevel spondylosis/discoge rupa change of the cervical spine is not well visualized what appears to be C4 through C7. No evidence of acute fracture. Susceptibility artifact from hardware, posterior fusion and bilateral transpedicular screws L3 and L4 limiting the evaluation. There appears to be laminectomies L3 through L5 and possibly partial at L2. Conus Medullaris: Conus appears to terminate at T12-L1 and appears within limits. Cauda equina appears within limits. L1-2: Appears within limits L2-3: Adjacent susceptibility artifact from L3 hardware. Question possibility of left-sided posterior Modic type degenerative endplate changes versus susceptibility artifact from hardware. A mild broad-based disc bulge is present mildly greater towards the left foramina which in combination with hypertrophic facet synovial appearing change results in a left-sided foraminal narrowing and possibly impinging on the exiting left L2 nerve for example sagittal 11. No right- sided foraminal narrowing. Bilateral facet hypertrophic change causes bilateral posterolateral canal narrowing without significant appearing compression for example axial 8. L3-4: Appearance of disc desiccation with mild loss of disc height. No significant appearing central or foraminal narrowing identified. L4-5: Minimal anterolisthesis L4 on L5. Disc desiccation with moderate loss of disc height appears greater towards the right side. Broad-based disc bulge without significant appearing central or foraminal narrowing identified. T1 low and T2 bright and stir bright Modic type endplate degenerative changes suggested. L5-S1: Spondylosis/discoge rupa change with a mild central disc bulge without significant appearing central or foraminal narrowing. Limited views of the retroperitoneum appear unremarkable. MRI/Spine Lumbar (Routine) IMPRESSION: Susceptibility artifact from hardware, posterior fusion and bilateral transpedicular screws L3 and L4 limiting the evaluation. There appears to be laminectomies L3 through L5 and possibly partial at L2. Multilevel spondylosis/discoge rupa change as above. Reading Location: [id number] CC: [employer] MAKERR[employer]iq Peck; AVTAR Montanez Edger Feeder: Signed Normal [facility] L/S Spine Min 4 Viewson 08-29 L/S Spine Min 4 Views [facility] [address] [place], [place] [address] L/S Spine Min 4 Views MR#: [id number] Acct: [id number] Name: MARIELLA WINCHESTER Rep #: [id number] : 1955 68 From: Tono Galaviz MD PCP: Status: DEP AMB Study: L/S Spine Min 4 Views Date of Exam: 09/15/24 Exam# [id number] Ordering Dr: Maria A Chung PROCEDURE: L/S SPINE MIN 4 VIEWS, 09/15/2024 REASON FOR EXAM: CHRONIC PAIN TECHNIQUE: AP, lateral, and lateral flexion/extension views of the lumbar spine were obtained. COMPARISON: None FINDINGS: Note that for the purposes of this report the last well-formed disc space will be assigned L5-S1. L3-L4 posterior spinal fusion with laminectomy. Questionable lucency surrounding the LEFT L4 pedicle screw, visible only on the AP view, up to 2 mm. Fracture/dislocatio n: None visible. Vertebral body heights: Preserved. Alignment: S shaped lumbar scoliosis dextroconvex superiorly and levoconvexity inferiorly. Trace grade 1 anterolisthesis at L5-S1 at L4-L5 is likely degenerative. Disc spaces: Variable disc height loss up to moderate along the visualized lower thoracic spine with osteophytes. Facets: Lower lumbar facet arthropathy. Soft tissues: Atherosclerosis. Foreign bodies: None visible. Bone mineralization: Suspected demineralization. Other: None. RAD/L/S Spine Min 4 Views IMPRESSION: 1. L3-L4 posterior spinal fusion. Question lucency surrounding the LEFT L4 pedicle screw visible only on one view. Although questionable, this can be seen in the setting of loosening or infection. Correlate with clinical evaluation and any available previous imaging. 2. Multilevel spondylosis and additional description as above. Reading Location: [id number] CC: AVTAR Montanez Edger Feeder: Signed Normal [facility] Orthopedic Visit Reporton Orthopedic Visit Report [facility] [address] [place] [address] OFFICE VISIT Date of Service: 09/15/24 MR#: [id number] Acct: [id number] Name: MARIELLA WINCHESTER Rep #: [id number] : 1955 Provider: AVTAR Montanez Age/Sex: 68/M Location: [facility] Status: Signed with Addenda ADDENDUM by AVTAR Montanez on 09/15/24 at 1122 Assessment and Plan Assessment and Plan (1) Lumbar stenosis without neurogenic claudication: Status: Acute (2) Adjacent segment disease of lumbar spine with history of fusion procedure: Status: Acute (3) History of lumbar fusion: Status: Acute Orders: Orders L/S Spine Min 4 Views Today M54.50 - Low back pain, unspecified Spine Lumbar (Routine) Today M48.061 - Spinal stenosis, lumbar region without neurogenic claudication, M51.369 - Other intervertebral disc degeneration, lumbar region without mention of lumbar back pain or lower extremity pain Referrals Pain Management M48.061 - Spinal stenosis, lumbar region without neurogenic claudication, M51.369 - Other intervertebral disc degeneration, lumbar region without mention of lumbar back pain or lower extremity pain Medications: New methocarbamol 500 mg PO TID PRN 60 tabs 0RF pain/spasms Plan Follow up with Dr. Sal. 09/15/24 112 Date Maria A Chung cc: * Signed Intake Vital Signs 09/15/24 09:04 Weight: 188 lb Intake Visit Reasons: LUMBAR SPINE Chief Complaint: lumbar spine Is patient in pain?: Yes (low back ) Pain scale (1-10): 6 Allergies meperidine (From Demerol) Allergy (Mild, Verified 09/15/24 09:05) Nausea/Vom/Diarrhea Medications ???Medication ???Instructions ???Recorded ???Confirmed ???Type insulin glargine 100 unit/mL 10 unit subcut BID 09/15/24 History subcutaneous solution (Lantus U-100 Insulin) insulin lispro 100 unit/mL 1 sliding scale dose subcut 09/15/24 History subcutaneous pen USEASDIRECTD lisinopril 5 mg tablet 5 mg PO QDAY 09/15/24 09/15/24 His tory metformin 500 mg tablet 500 mg PO BID 09/15/24 09/15/24 Hi story methocarbamol 500 mg tablet 500 mg PO TID PRN pain/spasms #60 09/15/24 09/15/24 Rx tabs Have you fallen in the past year?: No PFSH Surgical History (Updated 09/15/24 @ 10:53 by AVTAR Montanez) History of lumbosacral spine surgery H/O left knee surgery H/O right knee surgery Social History (Updated 09/15/24 @ 09:04 by Janis Dubose) Smoking Status: Former smoker alcohol intake: current alcohol intake frequency: 0-2 drinks per day substance use type: does not use HPI LUMBAR SPINE Chief Complaint: lumbar spine Details: This documentation accurately reflects the service provided and the decisions made by me, AVTAR Montanez 09/15/24 0857. Part of today???s visit was documented by [ ], acting as scribe. MARIELLA WINCHESTER is a 68 year old M here today for lumbar spine. Pt. reports his low back pain began after pulling weeds 25 years ago and he had a lumbar surgery shortly after. He states his low back progressively worsened and he had another lumbar surgery 3 years ago where had a L3-4 fusion at the [facility] by Dr. Gardner. He states the surgery was helpful for 9 months. He states his low back is painful equal across and worsens with weight bearing. Says that he gets very tight low back pain and says that after about 100 steps he says that he gets worsening back pain and he has to sit down and lean forward in order to resolve this pain. Says that after the pain gets better he is able to then walk for another 100 steps before once again needing to sit down. Says that he needs to lean on a shopping cart when going to a grocery store in order to make it further into the store. He says that he primarily has very tight low back pain which is worse in the morning and does get a little bit better throughout the day as he is moving. He also mentions that he can only stand for about 5 to 10 minutes due to the back pain before it worsens and he needs to sit down. The patient does not use a cane or walker. No physical therapy after his surgery. He states it is constantly tight and cracks frequently especially in the morning. He states his pain will intermittently will radiate down his bilateral thighs to his knees. He has been seen by a chiropractor which has not been helpful. He has not done PT recently. Hx of diabetes, last a1c was 6.8, no heart or lung issues, no blood thinners. Ortho Exam General General: Yes no acute distress Neurologic: Yes alert and Yes oriented x3 Spine SPINE TESTING CERVICAL THORACIC LUMBAR Musculoskeletal Strength 0=absent - 5=normal Details: Neurological exam of the lower extremities shows 5x5 power. Normal sensati (more content not included)... Normal [facility] CMP with eGFRon 08-10-2024 AGE 68 years Normal [facility] Comment on above: Performed By: #### 2 [id number] #### [facility],[address] [place] [address] 03448 Albumin [Mass/Vol] 3.7 g/dL Normal 3.4 - 5.0 [facility] Comment on above: Performed By: #### 2 21297 #### [facility],[address] [place] [address] 63698 Albumin/Globulin [Mass ratio] 1.0 {ratio} Normal 0.9 - 1.6 [facility] Comment on above: Performed By: #### 2 74126 #### [facility],[address] [place] [address] 27156 ALK PHOS 78 U/L Normal 46 - 116 [facility] Comment on above: Performed By: #### 2 26736 #### [facility],[address] [place] [address] 28623 ALT [Catalytic activity/Vol] 26 U/L Normal 16 - 63 [facility] Comment on above: Performed By: #### 2 42608 #### [facility],[address] [place] [address] 17297 Anion gap [Moles/Vol] 11 mmol/L Normal 10 - 20 [facility] Comment on above: Performed By: #### 2 17008 #### [facility],[address] [place] [address] 17825 AST [Catalytic activity/Vol] 27 U/L Normal 15 - 37 [facility] Comment on above: Performed By: #### 2 19327 #### [facility],[address] [place] [address] 92576 B/C RATIO 18 ratio Normal 0 - 30 [facility] Comment on above: Performed By: #### 2 89360 #### [facility],[address] [place] [address] 47313 Bilirubin [Mass/Vol] 0.6 mg/dL Normal 0.2 - 1.0 [facility] Comment on above: Performed By: #### 2 56273 #### [facility],[address] [place] [address] 35197 Calcium [Mass/Vol] 9.2 mg/dL Normal 8.5 - 10.1 [facility] Comment on above: Performed By: #### 2 37319 #### [facility],[address] [place] [address] 53098 Chloride [Moles/Vol] 99 mmol/L Normal 98 - 107 [facility] Comment on above: Performed By: #### 2 36842 #### [facility],[address] [place] [address] 30696 CMP with eGFR Normal [facility] Comment on above: Result Comment: COMP REHENSIVE METABOLIC PANEL Performed By: #### 2 24607 #### [facility],[address] [place] [address] 07773 CO2 [Moles/Vol] 27.3 mmol/L Normal 21.0 - 32.0 [facility] Comment on above: Performed By: #### 2 94999 #### [facility],[address] [place] [address] 44507 Creatinine [Mass/Vol] 1.14 mg/dL Normal 0.70 - 1.30 [facility] Comment on above: Performed By: #### 2 31286 #### [facility],[address] [place] [address] 95923 GFR/1.73 sq M.predicted among non-blacks MDRD (S/P/Bld) [Vol rate/Area] mL/min/{1.73_m2} Normal 60 - 999 [facility] Comment on above: Performed By: #### 2 38176 #### [facility],[address] [place] [address] 35424 Result Comment: ACCO RDING TO THE NATIONAL KIDNEY DISEASE EDUCATION PROGRAM(NKDE), A NORMAL eGFR IS A VALUE GREATER THAN OR EQUAL TO 60 ML/MIN/1.73 SQ METERS. CHRONIC KIDNEY DISEASE: <60mL/MIN/1.73 SQ METERS KIDNEY FAILURE: <15mL/MIN/1.73 SQ METERS THIS TEST SHOULD ONLY BE USED FOR PATIENTS 18 YEARS OF AGE AND OLDER. Globulin (S) [Mass/Vol] 3.6 g/dL Normal 1.5 - 3.8 [facility] Comment on above: Performed By: #### 2 56558 #### [facility],[address] [place] [address] 14116 Glucose [Mass/Vol] 191 mg/dL High 74 - 106 [facility] Comment on above: Performed By: #### 2 73776 #### [facility],[address] [place] [address] 63868 Potassium [Moles/Vol] 5.1 mmol/L Normal 3.5 - 5.1 [facility] Comment on above: Performed By: #### 2 39078 #### [facility],[address] [place] [address] 97353 Protein [Mass/Vol] 7.3 g/dL Normal 6.4 - 8.2 [facility] Comment on above: Performed By: #### 2 89683 #### [facility],[address] [place] [address] 32174 Sodium [Moles/Vol] 132 mmol/L Low 136 - 145 [facility] Comment on above: Performed By: #### 2 99589 #### [facility],[address] [place] [address] 09852 Urea nitrogen [Mass/Vol] 21 mg/dL High 7 - 18 [facility] Comment on above: Performed By: #### 2 87446 #### [facility],[address] [place] [address] 24525 CMP with eGFRon 02-29-2024 AGE 68 years Normal [facility] Comment on above: Performed By: #### 2 35080 #### [facility],[address] [place] [address] 81030 Albumin [Mass/Vol] 3.3 g/dL Low 3.4 - 5.0 [facility] Comment on above: Performed By: #### 2 32648 #### [facility],[address] [place] [address] 24916 Albumin/Globulin [Mass ratio] 0.9 {ratio} Normal 0.9 - 1.6 [facility] Comment on above: Performed By: #### 2 31195 #### [facility],[address] [place] [address] 11044 ALK PHOS 68 U/L Normal 46 - 116 [facility] Comment on above: Performed By: #### 2 63684 #### [facility],[address] [place] [address] 98895 ALT [Catalytic activity/Vol] 20 U/L Normal 16 - 63 [facility] Comment on above: Performed By: #### 2 22853 #### [facility],[address] [place] [address] 50043 Anion gap [Moles/Vol] 12 mmol/L Normal 10 - 20 [facility] Comment on above: Performed By: #### 2 22645 #### [facility],[address] [place] [address] 98270 AST [Catalytic activity/Vol] 19 U/L Normal 15 - 37 [facility] Comment on above: Performed By: #### 2 49000 #### [facility],[address] [place] [address] 97051 B/C RATIO 14 ratio Normal 0 - 30 [facility] Comment on above: Performed By: #### 2 98119 #### [facility],[address] [place] [address] 16074 Bilirubin [Mass/Vol] 0.4 mg/dL Normal 0.2 - 1.0 [facility] Comment on above: Performed By: #### 2 75313 #### [facility],[address] [place] [address] 78742 Calcium [Mass/Vol] 9.0 mg/dL Normal 8.5 - 10.1 [facility] Comment on above: Performed By: #### 2 57632 #### [facility],[address] [place] [address] 24477 Chloride [Moles/Vol] 95 mmol/L Low 98 - 107 [facility] Comment on above: Performed By: #### 2 59115 #### [facility],[address] [place] [address] 17171 CMP with eGFR Normal [facility] Comment on above: Result Comment: COMP REHENSIVE METABOLIC PANEL Performed By: #### 2 36252 #### [facility],[address] [place], [place] [id number] CO2 [Moles/Vol] 27.0 mmol/L Normal 21.0 - 32.0 [facility] Comment on above: Performed By: #### 2 09297 #### [facility],[address] [place] [address] Creatinine [Mass/Vol] 1.00 mg/dL Normal 0.70 - 1.30 [facility] Comment on above: Performed By: #### 2 89966 #### [facility],[address] [place] [address] GFR/1.73 sq M.predicted among non-blacks MDRD (S/P/Bld) [Vol rate/Area] mL/min/{1.73_m2} Normal 60 - 999 [facility] Comment on above: Performed By: #### 2 62045 #### [facility],[address] [place] [address] Result Comment: ACCO RDING TO THE NATIONAL KIDNEY DISEASE EDUCATION PROGRAM(NKDE), A NORMAL eGFR IS A VALUE GREATER THAN OR EQUAL TO 60 ML/MIN/1.73 SQ METERS. CHRONIC KIDNEY DISEASE: <60mL/MIN/1.73 SQ METERS KIDNEY FAILURE: <15mL/MIN/1.73 SQ METERS THIS TEST SHOULD ONLY BE USED FOR PATIENTS 18 YEARS OF AGE AND OLDER. Globulin (S) [Mass/Vol] 3.7 g/dL Normal 1.5 - 3.8 [facility] Comment on above: Performed By: #### 2 82267 #### [address] [address] Glucose [Mass/Vol] 155 mg/dL High 74 - 106 [facility] Comment on above: Performed By: #### 2 01297 #### [place] [address] Potassium [Moles/Vol] 4.2 mmol/L Normal 3.5 - 5.1 [facility] Comment on above: Performed By: #### 2 80133 #### [address] [address] Protein [Mass/Vol] 7.0 g/dL Normal 6.4 - 8.2 [facility] Comment on above: Performed By: #### 2 90776 #### [facility],[address] [place], [place] [address] Sodium [Moles/Vol] 130 mmol/L Low 136 - 145 [facility] Comment on above: Performed By: #### 2 48378 #### [place] [id number] Urea nitrogen [Mass/Vol] 14 mg/dL Normal 7 - 18 [facility] Comment on above: Performed By: #### 2 04080 #### [address] [address] .Auto Diffon 02-23-2024 Basophil, Absolute 0.1 10 3/mcL Normal 0.0-0.3 [facility] Comment on above: Performed By: #### C TED JONES, NEETU, BMP, TROPHS, GFR, ADIFF #### [facility] [address] [place] [address] 94857 Basophils/100 WBC (Bld) 1.1 % Normal 0.0-2.5 [facility] Comment on above: Performed By: #### C TED JONES, ANEU, BMP, TROPHS, GFR, ADIFF #### [address] [address] Eosinophil, Absolute 0.2 10 3/mcL Normal 0.0-0.7 [facility] Comment on above: Performed By: #### C TED JONES, ANEU, BMP, TROPHS, GFR, ADIFF #### [address] [address] Eosinophils/100 WBC (Bld) 3.9 % Normal 0.0-6.0 [facility] Comment on above: Performed By: #### C TED JONES, ANEU, BMP, TROPHS, GFR, ADIFF #### [address] [address] Lymphocyte, Absolute 1.0 10 3/mcL Normal 0.9-4.3 [facility] Comment on above: Performed By: #### C TED JONES, ANEU, BMP, TROPHS, GFR, ADIFF #### [address] [address] Lymphocytes/100 WBC (Bld) 19.0 % Low 20.0-40.0 [facility] Comment on above: Performed By: #### C TED JONES, NEETU, BMP, TROPHS, GFR, ADIFF #### [address] [address] Monocyte, Absolute 0.7 10 3/mcL Normal 0.1-1.4 [facility] Comment on above: Performed By: #### C TED JONES, ANEU, BMP, TROPHS, GFR, ADIFF #### [address] [address] Monocytes/100 WBC (Bld) 12.2 % Normal 2.0-13.0 [facility] Comment on above: Performed By: #### C TED JONES, ANEU, BMP, TROPHS, GFR, ADIFF #### [address] [address] Neutrophils/100 WBC (Bld) 63.8 % Normal 50.0-75.0 [facility] Comment on above: Performed By: #### C TED JONES, ANEU, BMP, TROPHS, GFR, ADIFF #### [address] [address] .GFRon 02-23-2024 GFR >60 [facility] Comment on above: Result Comment: GFR Population mean for , Non- Americans Ages 20-29 = 116 mL/min/1.73 sq.m. Ages 30-39 = 107 mL/min/1.73 sq.m. Ages 40-49 = 99 mL/min/1.73 sq.m. Ages 50-59 = 93 mL/min/1.73 sq.m. Ages 60-69 = 85 mL/min/1.73 sq.m. Ages 70+ = 75 mL/min/1.73 sq.m. Chronic Kidney Disease: Less than 60 mL/min/1.73 square meters End Stage Renal Disease: Less than 15 mL/min/1.73 square meters Performed By: #### C TED JONES, ANEU, BMP, TROPHS, GFR, ADIFF #### [place] [address] GFR Non- >60 [facility] Comment on above: Result Comment: GFR Population mean for , Non- Americans Ages 20-29 = 116 mL/min/1.73 sq.m. Ages 30-39 = 107 mL/min/1.73 sq.m. Ages 40-49 = 99 mL/min/1.73 sq.m. Ages 50-59 = 93 mL/min/1.73 sq.m. Ages 60-69 = 85 mL/min/1.73 sq.m. Ages 70+ = 75 mL/min/1.73 sq.m. Chronic Kidney Disease: Less than 60 mL/min/1.73 square meters End Stage Renal Disease: Less than 15 mL/min/1.73 square meters Performed By: #### C TED JONES, ANEU, BMP, TROPHS, GFR, ADIFF #### [place] [address] .MDWon 02-23-2024 Monocyte Distribution Width 17.15 Normal 0.00-20.00 [facility] Comment on above: Result Comment: For ED adult patients suspected of sepsis, MDW<=20.0 does not rule out sepsis or risk of sepsis Performed By: #### C TED JONES, NEETU, BMP, TROPHS, GFR, ADIFF #### [address] [address] .NEUABSon 02-23-2024 Neutrophil, Absolute 3.4 10 3/mcL Normal 2.3-8.1 [facility] Comment on above: Performed By: #### C TED JONES, ANEU, BMP, TROPHS, GFR, ADIFF #### [address] [address] [facility] BUN/Creatinine Ratio 14.3 ratio Normal 10.0-22.0 [facility] Comment on above: Performed By: #### C TED JONES, NEETU, BMP, TROPHS, GFR, ADIFF #### [place] [address] Calcium [Mass/Vol] 10.1 mg/dL Normal 8.7-10.4 [facility] Comment on above: Performed By: #### C TED JONES, NEETU, BMP, TROPHS, GFR, ADIFF #### [place] [address] Chloride [Moles/Vol] 96 mmol/L Low 98-110 [facility] Comment on above: Performed By: #### C TED JONES, ENETU, BMP, TROPHS, GFR, ADIFF #### [place] [id number] CO2 [Moles/Vol] 26 mmol/L Normal 22-32 [facility] Comment on above: Performed By: #### C TED JONES, NEETU, BMP, TROPHS, GFR, ADIFF #### [place] [phone] Creatinine [Mass/Vol] 0.84 mg/dL Normal 0.60-1.40 [facility] Comment on above: Result Comment: Test ing performed on TE2 analyzer using enzymatic creatinine methodology. Performed By: #### C TED JONES, NEETU, BMP, TROPHS, GFR, ADIFF #### [place] [address] Electrolyte Balance 3.0 mEq/L Low 4.0-15.0 [facility] Comment on above: Performed By: #### C TED JONES, NEETU, BMP, TROPHS, GFR, ADIFF #### [place] [address] Glucose [Mass/Vol] 162 mg/dL High 82-115 [facility] Comment on above: Performed By: #### C TED JONES, NEETU, BMP, TROPHS, GFR, ADIFF #### [place] [address] Potassium [Moles/Vol] 4.6 mmol/L Normal 3.5-5.0 [facility] Comment on above: Result Comment: Spec imen slightly hemolyzed. Performed By: #### C TED JONES, NEETU, BMP, TROPHS, GFR, ADIFF #### [place] [address] Sodium [Moles/Vol] 125 mmol/L Low 136-145 [facility] Comment on above: Performed By: #### C TED JONES, NEETU, BMP, TROPHS, GFR, ADIFF #### [place] [address] Urea nitrogen [Mass/Vol] 12.0 mg/dL Normal 8.0-22.0 [facility] Comment on above: Performed By: #### C TED JONES, NEETU, BMP, TROPHS, GFR, ADIFF #### [place] [id number] CBCon 02-23-2024 Erythrocyte distribution width (RBC) [Ratio] 16.0 % High 11.5-15.5 [facility] Comment on above: Performed By: #### C TED JONES, NEETU, BMP, TROPHS, GFR, ADIFF #### [place] [id number] Hematocrit (Bld) [Volume fraction] 46.2 % Normal 40.0-52.0 [facility] Comment on above: Performed By: #### TED RICE, NEETU, BMP, TROPHS, GFR, ADIFF #### [place] [id number] Hgb 15.9 G/dL Normal 13.0-17.5 [facility] Comment on above: Performed By: #### C TED JONES, ANEU, BMP, TROPHS, GFR, ADIFF #### [address] [address] MCH (RBC) [Entitic mass] 31.5 pg Normal 27.0-33.0 [facility] Comment on above: Performed By: #### C TED JONES, ANEU, BMP, TROPHS, GFR, ADIFF #### [place] [address] MCHC 34.4 G/dL Normal 32.0-36.0 [facility] Comment on above: Performed By: #### C TED JONES, NEETU, BMP, TROPHS, GFR, ADIFF #### [place] [address] MCV (RBC) [Entitic vol] 91.3 fL Normal 81.0-100.0 [facility] Comment on above: Performed By: #### C TED JONES, NEETU, BMP, TROPHS, GFR, ADIFF #### [place] [address] Platelet 321 10 3/mcL Normal 150-450 [facility] Comment on above: Performed By: #### C TED JONES, NEETU, BMP, TROPHS, GFR, ADIFF #### [place] [address] Platelet mean volume (Bld) [Entitic vol] 6.4 fL Normal 6.4-10.5 [facility] Comment on above: Performed By: #### C TED JONES, ANEU, BMP, TROPHS, GFR, ADIFF #### [place] [address] RBC 5.06 10 6/mcL Normal 4.50-6.00 [facility] Comment on above: Performed By: #### C TED JONES, ANEU, BMP, TROPHS, GFR, ADIFF #### [address] [address] WBC 5.4 10 3/mcL Normal 4.5-10.8 [facility] Comment on above: Performed By: #### C KAREN, TED, NEETU, BMP, TROPHS, GFR, ADIFF #### [address] [address] LABORATORYOrdered By: SYSTEM SYSTEM on 02-23-2024 Basophils (Bld) [#/Vol] 0.1 103/mcL Normal 0.0 - 0.3 10^3/mcL AH Workflow SS Basophils/100 WBC (Bld) 1.1 % Normal 0.0 - 2.5 % AH Workflow SS Calcium [Mass/Vol] 10.1 mg/dL Normal 8.7 - 10. 4 mg/dL ADM SS Chloride [Moles/Vol] 96 mmol/L Low 98 - 110 mEq/L ADM SS CO2 [Moles/Vol] 26 mmol/L Normal 22 - 32 mEq/L AH ADM SS Creatinine [Mass/Vol] 0.84 mg/dL Normal 0.60 - 1.40 mg/dL ADM SS Comment on above: Interpretive Data: T esting performed on TE2 analyzer using enzymatic creatinine methodology. Electrolyte Balance 3.0 mEq/L Low 4.0 - 15 .0 mEq/L AH ADM SS Eosinophils (Bld) [#/Vol] 0.2 103/mcL Normal 0.0 - 0.7 10^3/mcL AH Workflow SS Eosinophils/100 WBC (Bld) 3.9 % Normal 0.0 - 6.0 % AH Workflow SS Erythrocyte distribution width (RBC) [Ratio] 16.0 % High 11.5 - 15.5 % AH Workflow SS GFR/1.73 sq M.predicted among blacks MDRD (S/P/Bld) [Vol rate/Area] ml/min/1.73sqm Invalid Interpretation Code AH ADM SS Comment on above: Interpretive Data: GFR Population mean for , Non- Americans Ages 20-29 = 116 mL/min/1.73 sq.m. Ages 30-39 = 107 mL/min/1.73 sq.m. Ages 40-49 = 99 mL/min/1.73 sq.m. Ages 50-59 = 93 mL/min/1.73 sq.m. Ages 60-69 = 85 mL/min/1.73 sq.m. Ages 70+ = 75 mL/min/1.73 sq.m. Chronic Kidney Disease: Less than 60 mL/min/1.73 square meters End Stage Renal Disease: Less than 15 mL/min/1.73 square meters GFR/1.73 sq M.predicted among non-blacks MDRD (S/P/Bld) [Vol rate/Area] ml/min/1.73sqm Invalid Interpretation Code AH ADM SS Comment on above: Interpretive Data: GFR Population mean for , Non- Americans Ages 20-29 = 116 mL/min/1.73 sq.m. Ages 30-39 = 107 mL/min/1.73 sq.m. Ages 40-49 = 99 mL/min/1.73 sq.m. Ages 50-59 = 93 mL/min/1.73 sq.m. Ages 60-69 = 85 mL/min/1.73 sq.m. Ages 70+ = 75 mL/min/1.73 sq.m. Chronic Kidney Disease: Less than 60 mL/min/1.73 square meters End Stage Renal Disease: Less than 15 mL/min/1.73 square meters Glucose [Mass/Vol] 162 mg/dL High 82 - 115 mg/dL AH ADM SS Hematocrit (Bld) [Volume fraction] 46.2 % Normal 40.0 - 52.0 % AH Workflow SS Hemoglobin (Bld) [Mass/Vol] 15.9 G/dL Normal 13.0 - 17.5 G/dL AH Workflow SS Lymphocytes (Bld) [#/Vol] 1.0 103/mcL Normal 0.9 - 4.3 10^3/mcL AH Workflow SS Lymphocytes/100 WBC (Bld) 19.0 % Low 20.0 - 40.0 % AH Workflow SS MCH (RBC) [Entitic mass] 31.5 pg Normal 27.0 - 33.0 pg AH Workflow SS MCHC 34.4 G/dL Normal 32.0 - 36.0 G/dL AH Workflow SS MCV (RBC) [Entitic vol] 91.3 fL Normal 81.0 - 100.0 fL AH Workflow SS Monocyte distribution width Auto (Bld) [Entitic vol] 17.15 1 Normal 0.00 - 20.00 AH Workflow SS Comment on above: Result Comment: For ED adult patients suspected of sepsis, MDW<=20.0 does not rule out sepsis or risk of sepsis Monocytes (Bld) [#/Vol] 0.7 103/mcL Normal 0.1 - 1.4 10^3/mcL AH Workflow SS Monocytes/100 WBC (Bld) 12.2 % Normal 2.0 - 13.0 % AH Workflow SS Neutrophils (Bld) [#/Vol] 3.4 103/mcL Normal 2.3 - 8.1 10^3/mcL AH Workflow SS Neutrophils/100 WBC (Bld) 63.8 % Normal 50.0 - 75.0 % AH Workflow SS Platelet mean volume (Bld) [Entitic vol] 6.4 fL Normal 6.4 - 10.5 fL AH Workflow SS Platelets (Bld) [#/Vol] 321 103/mcL Normal 150 - 450 10^3/mcL AH Workflow SS Potassium [Moles/Vol] 4.6 mmol/L Normal 3.5 - 5.0 mEq/L ADM SS Comment on above: Result Comment: Spec imen slightly hemolyzed. RBC (Bld) [#/Vol] 5.06 106/mcL Normal 4.50 - 6.0 0 10^6/mcL AH Workflow SS Sodium [Moles/Vol] 125 mmol/L Low 136 - 145 mEq/L ADM SS Troponin I.cardiac DL <= 0.01 ng/mL [Mass/Vol] 5 ng/L Normal 0 - 54 ng/L ADM SS Comment on above: Interpretive Data: High Sensitive Troponin I Reference Ranges: Female: 0-34 ng/L Male: 0-54 ng/L Testing performed on [employer] IM analyzer using direct chemiluminescent technology. Urea nitrogen [Mass/Vol] 12.0 mg/dL Normal 8.0 - 22.0 mg/dL ADM SS Urea nitrogen/Creatinine [Mass ratio] 14.3 ratio Normal 10.0 - 22.0 ratio ADM SS WBC (Bld) [#/Vol] 5.4 103/mcL Normal 4.5 - 10.8 10^3/mcL Workflow SS VALERIESon 02-23-2024 High Sensitivity Troponin I 5 ng/L Normal 0-54 [facility] Comment on above: Result Comment: High Sensitive Troponin I Reference Ranges: Female: 0-34 ng/L Male: 0-54 ng/L Testing performed on [employer] IM analyzer using direct chemiluminescent technology. Performed By: #### C BC, MDW, ANEU, BMP, TROPHS, GFR, ADIFF #### [facility] [address] [place] [address] XR CHEST 1 VIEWon 02-23-2024 XR CHEST 1 VIEW ORIGINAL EXAMINATION: ONE XRAY VIEW OF THE CHEST 02/23/2024 5:16 pm COMPARISON: None. HISTORY: ORDERING SYSTEM PROVIDED HISTORY: Reason for Exam: cp FINDINGS: Cardiomediastinal silhouette is probably within normal limits given patient rotation. Costophrenic angles are sharp. No radiographic pneumothorax. No focal consolidation. Degenerative changes of the spine and shoulders. IMPRESSION: No focal consolidation. Interpreted by: Ezra Canchola Preliminary Report By: Ezra Canchola Electronically signed By Ezra Canchola Dictated Date: 02/23/2024 5:32:38 PM Prelim Date: 02/23/2024 5:37:34 PM Sign Date: 02/23/2024 5:37:34 PM Ordering Provider: MARGARITA SHEA [facility] Hemoglobin AND Hematocriton 02-07-2022 Hematocrit (Bld) [Volume fraction] 34.8 % Low 40.0-52.0 [facility] Comment on above: Performed By: #### H GHCT #### [address] [address] Hemoglobin (Bld) [Mass/Vol] 11.7 g/dL Low 13.0-18.0 [facility] Comment on above: Performed By: #### H GHCT #### [address] [address] Clinical Summary: MikeyKAYekta trevino 09-08-2021 MC75 OP Visit Invalid Interpretation Code [facility] Work Phone: Office Visit: Test Result, R m: 20on 09-08-2021 NEGATED: Highlighted rowMRI (magnetic resonance imaging) history of the lumbar spine` on 08/26/2021 at [facility] Invalid Interpretation Code [facility] Work Phone: NEGATED: Highlighted rowxray history of the lumbar spine on 08/15/2021 at [facility] Invalid Interpretation Code [facility] Work Phone: Vital Signs Date Time Vital Sign Value Performing Clinician Facility 12-19-2024 08:55-0400 Body height 182.88 cm Maria A Juliet PA Work Phone: [facility] 12-19-2024 08:55-0400 Body mass index (BMI) [Ratio] 24.4 kg/m2 Maria A Juliet PA Work Phone: [facility] 12-19-2024 08:55-0400 Body weight 81.64 kg Maria A Juliet PA Work Phone: [facility] 10-24-2024 08:28-0400 Body height 182.88 cm Maria A Juliet PA Work Phone: [facility] 10-24-2024 08:28-0400 Body mass index (BMI) [Ratio] 24.4 kg/m2 Maria A Juliet PA Work Phone: [facility] 10-24-2024 08:28-0400 Body weight 81.64 kg Maria A Juliet PA Work Phone: [facility] 09-15-2024 09:04-0400 Body weight 85.27 kg Maria A Juliet PA Work Phone: [facility] 02-23-2024 22:35-0400 Diastolic Blood Pressure Non-Invasive 88 mm[Hg] ANT VIZCAINO MD [facility] 02-23-2024 22:35-0400 Heart rate 80 /min ANT VIZCAINO MD [facility] 02-23-2024 22:35-0400 Respiratory rate 18 /min ANT VIZCAINO MD [facility] 02-23-2024 22:35-0400 Systolic Blood Pressure Non-Invasive 130 mm[Hg] ANT VIZCAINO MD [facility] 02-23-2024 21:28-0400 Diastolic Blood Pressure Non-Invasive 86 mm[Hg] ANT VIZCAINO MD [address] [place] [address] 02-23-2024 21:28-0400 Heart rate 80 /min ANT VIZCAINO MD [address] [place] [address] 02-23-2024 21:28-0400 Respiratory rate 18 /min ANT VIZCAINO MD [address] [place] [address] 02-23-2024 21:28-0400 Systolic Blood Pressure Non-Invasive 131 mm[Hg] ANT VIZCAINO MD [address] [place] [address] 02-23-2024 20:30-0400 Diastolic Blood Pressure Non-Invasive 87 mm[Hg] ANT VIZCAINO MD [address] [place] [address] 02-23-2024 20:30-0400 Heart rate 87 /min ANT VIZCAINO MD [address] [place] [address] 02-23-2024 20:30-0400 Respiratory rate 18 /min ANT VIZCAINO MD [address] [place] [address] 02-23-2024 20:30-0400 Systolic Blood Pressure Non-Invasive 151 mm[Hg] ANT VIZCAINO MD [address] [place] [address] 02-23-2024 19:43-0400 Body temperature 98.06 [degF] ANT VIZCAINO MD [address] [place] [address] 02-23-2024 19:43-0400 Heart rate 92 /min ANT VIZCAINO MD [address] [place] [address] 02-23-2024 17:53-0400 Heart rate 90 /min ANT VIZCAINO MD [address] [place] [address] 02-23-2024 15:52-0400 Body temperature 98.24 [degF] ANT VIZCAINO MD [address] [place] [address] 02-23-2024 15:52-0400 Body weight 81.9 kg ANT VIZCAINO MD [address] [place] [address] 02-23-2024 15:52-0400 Heart rate 97 /min ANT VIZCAINO MD [facility] NEGATED: Highlighted [id number] 10:040 Body height 182.88 cm Diana David AT [facility] [place] [facility] Work Phone: NEGATED: Highlighted [id number] 10:0400 Body height 183 cm Diana David AT [facility] Work Phone: NEGATED: Highlighted [id number] 10:09-040 Body mass index (BMI) [Ratio] 24.64 kg/m2 Diana David AT [facility] Work Phone: NEGATED: Highlighted [id number] 10:09040 Body weight 82.1 kg Diana David AT [facility] Work Phone: NEGATED: Highlighted [id number] 10:040 Body weight 82 kg Diaan David AT [facility] Work Phone: Encounters Encounter Date Encounter Type Care Provider Facility Start: 12-22-2024 Encounter for other preprocedural examination [facility] Start: 12-19-2024 End: 12-19-[address] Bry Sal MD -[facility] Work Phone: Start: 12-19-2024 End: 12-19-2024 ambulatory Maria A NOVA Work Phone: -[facility] Start: 12-15-2024 End: 12-15-2024 ambulatory Bry Sal Facility:[facility] Start: 12-14-2024 ambulatory SAIRA CHAVEZ [facility] Start: 12-14-2024 Encounter for other preprocedural examination SAIRA CHAVEZ [facility] Start: 10-24-2024 End: 10-24-2024 Patient encounter procedure Maria A NOVA -[facility] Work Phone: Start: 10-24-2024 End: 10-24-2024 ambulatory Maria A Chung [facility]TAR Work Phone: [facility] Work Phone: Start: 10-14-2024 End: 10-14-2024 Patient encounter procedure Maria A Chung [facility] -[facility] - [facility] Work Phone: Start: 10-14-2024 End: 10-14-2024 ambulatory Saira Peck Facility:[facility] Start: 09-15-2024 End: 09-15-2024 Patient encounter procedure Maria A Chung AVTAR -[facility] Work Phone: Start: 09-15-2024 End: 09-15-2024 ambulatory Maria A Juliet Facility:[facility] Start: 08-09-2024 End: 08-09-2024 ambulatory SAIRA [facility] Start: 02-29-2024 End: 02-29-2024 ambulatory [facility] Start: 02-23-2024 End: 02-23-2024 Emergency department patient visit ANT VIZCAINO MD [facility] Procedures Date Procedure Procedure Detail Performing Clinician Start: 10-14-2024 MRI of lumbar spine Abdifatah erickalev Chung [facility]AR Work Phone: Start: 09-15-2024 X-ray of lumbosacral spine Maria A Juliet NOVA Work Phone: Start: 09-08-2021 End: 09-08-2021 BP scrn no perf at interval Ang Ramirez MD Work Phone: Start: 09-08-2021 End: 09-08-2021 Calc BMI norm parameters Ang patricia MD Work Phone: Start: 09-08-2021 End: 09-08-2021 Current tobacco non-user cad cap copd pv dm Ang Ramirez MD Work Phone: Start: 09-08-2021 End: 09-08-2021 Docrev cur meds by akil Ramirez MD Work Phone: Start: 09-08-2021 End: 09-08-2021 LSO sc r ant/pos pnl pre ots Ang Ramirez MD Work Phone: Start: 09-08-2021 End: 09-08-2021 No doc of pain Ang Ramirez MD Work Phone: Start: 09-08-2021 End: 09-08-2021 Patient encounter procedure Ang Ramirez MD Work Phone: NEGATED: Highlighted rowStart: 09-08-2021 End: 09-08-2021 Documentation of current medications Diana Hernandez AT Plan of Treatment Date Care Activity Detail Author Start: 12-25-2024 ambulatory Ambulatory Facility:[facility] Start: 09-15-[address] [facility] Work Phone: Start: 09-08-2021 End: 09-08-2021 Patient encounter procedure Appointment She [facility] Work Phone: Patient referral [facility] Work Phone: Payers Date Payer Category Payer Self-pay 2021 Unknown [id number] 2016 Unknown [id number] 1955 Unknown [id number] 2.16.8 [id number] 1955 Unknown [id number] 2.16.8 [id number] 1955 Unknown [id number] 2.16.8 [id number] 1955 Unknown [id number] 2.16.8 [id number] Unknown [id number] 2.16.8 [id number] Unknown [id number] 2.16.8 [id number] Unknown [id number] 2.16.8 [id number] Unknown [id number] 2.16.8 [id number] Unknown [id number] 2.16.8 [id number] Unknown [id number] 2.16.8 [id number] Unknown [id number] 2.16.8 [id number] Social History Date Type Detail Facility Start: 09-08-2021 End: 09-08-2021 Assertion Unknown if ever smoked [facility] [place] [facility] Work Phone: Start: 01-21-2020 Tobacco smoking status Never s moked tobacco (finding) [facility] Start: 09-15-2024 End: 12-08-2024 Tobacco smoking status Ex-smoker (finding) [facility] Start: 1955 Sex Assigned At Male A [facility] Functional Status Date Assessment Result Facility 02-23-2024 Functional Status Independent [facility] 02-23-2024 Functional Status Standard Safet y ID band on, Allergy Band on, Call device within reach, Bed in low position, Wheels locked, Upper/Half-Length side-rails up, Phone within reach, personal items within reach [facility] Mental Status Date Assessment Result Facility 02-23-2024 Mental Status Orientation Oriented x 4 [facility] 02-23-2024 Mental Status [facility] Clinical Notes 11-30-2023 to 09-15-2024 Note Date & Type Note Facility 09-15-2024 Evaluation note Diagnosis Onset Date Resolution Adjacent segment disease of lumbar spine with history of fusion procedure acute September 15, 2024 8:52am History of lumbar fusion acute September 15, 2024 8:52am Lumbar stenosis without neurogenic claudication acute September 152024 8:52am [facility] Work Phone: 1(749) 587-791604-18-2025 Evaluation note* Diagnosis Onset Date Resolution Status Admit Date Adjacent segment disease of lumbar spine with history of fusion procedure acute September 15 8:52am History of lumbar fusion acute September 15, 2024 8:52am Lumbar stenosis without neurogenic claudication acute September 152024 8:52am Adjacent segment disease of lumbar spine with history of fusion procedure acute October 24, 2024 8:26am History of lumbar fusion acute October 24, 2024 8:26am Lumbar stenosis without neurogenic claudication acute September 8:26am [facility] Work Phone: 1(213) 333-820609-26-2024 Hospital Discharge instructions Patient Education 02/23/2024 22:26:10 Hyponatremia Hyponatremia Hyponatremia means low sodium levels in the blood. This condition most often occurs after prolongedvomiting or diarrhea, which causes your body to lose too much water and sodium. It can also result from drinking excess amounts of water or the use of diuretics (water pills). Rarely, it can be associated with disorders of your endocrine system, as side effects of illicit drug use (ecstasy), as a complication of some cancers especially small cell lung cancer, or as a complication of renal and liver disease or heart failure. Mild hyponatremia causes no symptoms. It is only discovered with a blood test. As sodium levels in the blood decreases, symptoms begin to appear. This includes weakness, confusion, muscle cramping and seizures. Home care Reduce your daily water intake until the problem is corrected. If you have been taking diuretics, you may be asked to stop taking them for a short time. If you are having symptoms of weakness or confusion, do not drive or operate dangerous machinery until symptoms resolve. If your sodium levels are too low to be managed at home with the above recommendations, you will beasked to go to the hospital to have your sodium replaced through your vein. Follow-up care Follow up with your healthcare provider for a repeat blood test within the next week, or as advised. When to seek medical advice Call your healthcare provider if any of the following occur: Increasing weakness Dizziness Irregular heartbeat, extra beats or very fast heart rate Increasing confusion Fainting or loss of consciousness Seizure [id number] [employer]. [address] [place] [address]. All rights reserved. This information is not intended as a substitute for professional medical care. Always follow yourhealthcare professional's instructions. Follow Up Care 02/23/2024 15:34:29 With:SAIRA PECK Address: [address] [place] [address] [address] [place] [address] [phone] When:2-4 days [facility] 09-25-2024 Emergency department Discharge summary Discharge Instructions Thank you for allowing [facility] to assist you with your healthcare needs. The following is importantdischarge information regarding your hospital visit. Diagnosis from Today's Visit Hyponatremia What to Do Next Instructions from Your Care Team You were seen in the emergency department determined that you have hyponatremia with a sodium levelof 125. You are recommended admission. After extensive conversation and understanding the risks andbenefits you elected to go home AGAINST MEDICAL ADVICE. You understand the risks and benefits of this. If you do change your mind we are happy to see back in the emergency department. And arrange admission to the hospital. Please follow-up with your primary care physician. As you have previously scheduled with the PCP follow-up appointment tomorrow morning. No qualifying data available. Post Acute Orders No qualifying data available. You Need to Schedule the Following Appointments Follow Up with SAIRA PECK When:Within 2-4 days Where:[address] [place] [address] [address] [place] [address]- [phone] Allergies Demerol Medications Please ask your primary doctor or pharmacist before taking any other medication not listed, including over the counter drugs, herbal medications, vitamins and or supplements as they may interact withyour home medications. What How Much When Instructions Last Dose Unchanged insulin aspart (Novolog) (NovoLOG FlexPen 100 units/ mL injectable solution) Sliding Scale Subcutaneous Three (3) times a day before meals Unchanged insulin detemir (Levemir) (Levemir FlexTouch 100 units/ mL 3 mL Pen) 20 unit(s) Subcutaneous Daily at bedtime Unchanged lisinopril (lisinopril 5 mg oral tablet) 1 tab(s) by mouth Once a day (in the morning) Unchanged multivitamin (Multiple Vitamins oral tablet) 1 tab(s) by mouth Once a day Please take this list to your next doctor s visit. Bring all medications you take, including over the counter medications, herbals and other supplements with you to your doctor s visit. Patients and families are reminded to discard old lists and to update any records with all medication providers or retail pharmacies. Education Materials Hyponatremia Hyponatremia means low sodium levels in the blood. This condition most often occurs after prolongedvomiting or diarrhea, which causes your body to lose too much water and sodium. It can also result from drinking excess amounts of water or the use of diuretics (water pills). Rarely, it can be associated with disorders of your endocrine system, as side effects of illicit drug use (ecstasy), as a complication of some cancers especially small cell lung cancer, or as a complication of renal and liver disease or heart failure. Mild hyponatremia causes no symptoms. It is only discovered with a blood test. As sodium levels in the blood decreases, symptoms begin to appear. This includes weakness, confusion, muscle cramping and seizures. Home care Reduce your daily water intake until the problem is corrected. If you have been taking diuretics, you may be asked to stop taking them for a short time. If you are having symptoms of weakness or confusion, do not drive or operate dangerous machinery until symptoms resolve. If your sodium levels are too low to be managed at home with the above recommendations, you will beasked to go to the hospital to have your sodium replaced through your vein. Follow-up care Follow up with your healthcare provider for a repeat blood test within the next week, or as advised. When to seek medical advice Call your healthcare provider if any of the following occur: Increasing weakness Dizziness Irregular heartbeat, extra beats or very fast heart rate Increasing confusion Fainting or loss of consciousness Seizure [phone] [employer]. [address] [place] [address]. All rights reserved. This information is not intended as a substitute for professional medical care. Always follow yourhealthcare professional's instructions. Additional Information VACCINATE! IT SAVES LIVES! Members of the community who have not yet received the COVID-19 vaccine and would like to receive it can visit one of [facility] vaccine clinics. There are many vaccine clinic locations within the [facility]. For locations and available times, please visit www.gettheshot.coronavirus.[place].gov/. It is important to note that some COVID mobile vaccine clinics are held outdoors and may be canceled in rainy or stormy conditions. To learn more about pediatric vaccinations (ages 5-11), we invite you to visit the [facility] webpage. https://www.[email or web address].org/pages/[email or web address]-Huwwj-Tnpafpvntzg-Rnvvkzcwdy-Crhkg-Cxs stions.htmlTo learn more about the COVID-19 vaccine, we invite you to visit the CDC website for a list of frequently asked questions. https://www.cdc.gov/coronavirus/2019-ncov/vaccines/faq.html [facility] Patient Portal Access Instructions: Stay connected with your healthcare team and access your personal medical information anytime with the [facility] Patient Portal. If you would like a full copy of your medical records please contact the [facility] Medical Records Department Wednesday through Wednesday between 8a.m. and 4:30p.m. Please follow the directions below to access the portal: 1.Access the email account you provided upon registration to the [facility].2.Look for an invitation email from [facility].3.Open the email and access the invitation link: Accept Invitation to [facility].Fill in the required fish to create your account. Sign into [email or web address] with your username and password that you created in the above steps to stay up to date. You can then view a summary of results, a summary of your visits, and the ability to download your summaries to your computer or send the information securely to a physician. Remember that your healthcare information is confidential, so carefully consider who you will allow to register on the [facility] Patient Portal for access to your information. You can also access the [employer] [facility] Patient Portal on the [employer] molly. Simply click on Health Records under [employer] and then click on the [employer] logo. HOW TO SAFELY DISPOSE OF PRESCRIPTION MEDICATIONS Please use one of the following methods to safely dispose of your unused medications. 1.Use a drug disposal kit: the drug disposal pouch allows you to safely discard your old and unuseddrugs. Ask your nurse to give you one when you are discharged.2.Visit a local take-back location: Many local pharmacies and police departments have programs that collect old and unwanted prescriptiondrugs. Call your local pharmacy or go to http://bit.Ku6/4X2Wg8a to find one close to you.3.Make use of household items: Use cat litter or old coffee grounds to dispose medications if other options arenot available. Mix your drugs with these household products, seal them in an airtight container andthrow it into the garbage. Call [facility]: [phone] to be sure your drugs can be disposed of in this way. Some medicines may require a different approach.4.Never flush your medications down the toilet. IF YOU HAVE BEEN PRESCRIBED AN OPIOIDS FOR PAIN If you have been prescribed an opioid (such as hydrocodone, oxycodone or morphine), it is critical to understand the possible side effects and risks of opioid pain medications. Even when taken as directed, opioids can have several side effects including: Tolerance, meaning you might need to take more of a medication for the same pain relief. Nausea, vomiting and/or constipation. Sleepiness, dizziness, dry mouth, confusion, depression or itching. Physical dependence, meaning you have withdrawal symptoms when a medication is stopped ? this can develop within a few days. KNOW YOUR RESPONSIBILITIES It is important to know exactly how much and how often to take the opioid pain medications you are prescribed. Never take opioids in higher amounts or more often than prescribed. Do not combine opioids with alcohol or other drugs that cause drowsiness, such as benzodiazepines, also known as benzos,including diazepam and alprazolam, muscle relaxants or sleep aids. Never sell or share prescriptionopioids. This is illegal. Store opioids in a secure place and out of reach of others (including children, family, friends and visitors). The last page(s) of this document has been signed and retained as a CHART COPY Signatures Patient Education Materials Hyponatremia Medication Leaflets My discharge plan and instructions have been reviewed and explained to me and IRANULFO TIMOTHY W understand my current condition and have read and understand these discharge instructions. I have received a written copy of the plan/instructions. If I have questions, I am aware that I should contact my doctor. 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 HISTORY: ORDERING SYSTEM PROVIDED HISTORY: Reason for Exam: cp FINDINGS: Cardiomediastinal silhouette is probably within normal limits given patient rotation. Costophrenic angles are sharp. No radiographic pneumothorax. No focal consolidation. Degenerative changes of the spine and shoulders. IMPRESSION: No focal consolidation. 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 Note. MICRO - Microbiology PROCEDURE: Blood Culture (bacterial) [*1] SOURCE: Blood BODY SITE: COLLECTED DATE/TIME: 11/24/2023 19:35 EDT RECEIVED DATE/TIME: 11/25/2023 18:52 EDT START DATE/TIME: 11/25/2023 18:52 EDT FREE TEXT SOURCE: FINAL REPORTS Final Report [] Verified Date/Time/Personnel: 11/30/2023 18:59 EDT Blood Culture: No Growth at 5 days. PRELIMINARY REPORTS Preliminary Report [] Verified Date/Time/Personnel: 11/25/2023 19:59 EDT Culture has been received in lab and is no growth to date. Routine cultures are held for 5 days. Performing Locations *1: This test was performed at: [facility], [address] [place] [address], [facility] , [facility] ([facility]11-30-2023 Note. MICRO - Microbiology PROCEDURE: Blood Culture (bacterial) [*1] SOURCE: Blood BODY SITE: COLLECTED DATE/TIME: 11/24/2023 19:25 EDT RECEIVED DATE/TIME: 11/25/2023 18:52 EDT START DATE/TIME: 11/25/2023 18:52 EDT FREE TEXT SOURCE: FINAL REPORTS Final Report [] Verified Date/Time/Personnel: 11/30/2023 18:59 EDT Blood Culture: No Growth at 5 days. PRELIMINARY REPORTS Preliminary Report [] Verified Date/Time/Personnel: 11/25/2023 19:59 EDT Culture has been received in lab and is no growth to date. Routine cultures are held for 5 days. Performing Locations *1: This test was performed at: [facility], [address] [place] [address], [facility]- , [facility] ([place])Evaluation + Plan note No data available for this section [facility] Evaluation noteThere may be information available, but it has not been provided by the sender.[facility] Work Phone: InstructionsNo information available.[facility] Work Phone: Chief Complaint Chief Complaint Description Start Date lower back pain Preliminary chief co mplaint data, not yet signed by the author as of Advance Directives There may be information available, but it has not been provided by the sender. No Advanced Directives Records FoundNo Advanced Directives Records FoundNo Advanced Directives Records FoundNo Advanced Directives Records FoundNo Advanced Directives Records Found Family History There may be information available, but it has not been provided by the sender.No Family History Records FoundNo Family History Records Found No data available for this section No Family History Records FoundNo Family History Records FoundNo Family History Records Found Summary Purpose Chief Complaint and Reason for Visit Chief Complaint Admit Date LUMBAR SPINE September 15, 2024 8:5 2am Xray room 5 September 15, 2024 9:1 5am LUMBAR STENOSIS/PAIN/DDD October 14, 2024 8:51am LUMBAR SPINE October 24, 2024 8:26a m Reason for Visit Admit Date Adjacent segment disease of lumbar spine with history of fusion procedure September 15, 2024 8:52am History of lumbar fusion September 15 8:52am Lumbar stenosis without neurogenic jodie ication September 15, 2024 8:52am Chief Complaint Admit Date LUMBAR SPINE September 15, 2024 8:5 2am Xray room 5 September 15, 2024 9:1 5am LUMBAR STENOSIS/PAIN/DDD October 14, 2024 8:51am LUMBAR SPINE October 24, 2024 8:26a m lumbar spine December 19, 2024 8:54 am Reason for Visit Admit Date Adjacent segment disease of lumbar spine with history of fusion procedure September 15, 2024 8:52am History of lumbar fusion September 15 8:52am Lumbar stenosis without neurogenic jodie ication September 15, 2024 8:52am Adjacent segment disease of lumbar spine with history of fusion procedure October 24, 2024 8:26am History of lumbar fusion October 24, 2024 8:26am Lumbar stenosis without neurogenic jodie ication October 24, 2024 8:26am Additional Source Comments Reason for Visit (unrecogniz ed section and content) Reason For Visit Description Test Result Preliminary reason f or visit data, not yet signed by the author as of lower back pain (unrecognized sect ion and content) No Status Records FoundNo Status Records FoundNo Status Records FoundNo Status Records FoundNo Status Records Found INFORMATION SOURCE (unrecogn ized section and content) DATE CREATED AUTHOR 02/07/2022 [facility] DATE CREATED AUTHOR AUTHOR'S ORGANIZ ATION 12/02/2023 [facility] ([place]) DATE CREATED AUTHOR AUTHOR'S ORGANIZ ATION 03/17/2024 [facility] DATE CREATED AUTHOR AUTHOR'S ORGANIZ ATION 12/17/2024 [facility] DATE CREATED AUTHOR AUTHOR'S ORGANIZ ATION 12/22/2024 [facility] Patient Care team informatio n (unrecognized section and content) Team Status: Active Member Role Status Dates Saira Peck [employer], [employer] Primary Care Provider Active Team Status: Inactive Member Role Status Dates AVTAR Montanez Attending Provider Active Star t: September 15, 2024 End: September 15, 2024 Team Status: Inactive Member Role Status Dates Dr. Jacek Deleon MD Attending Provider Active S tart: September 15, 2024 End: September 15, 2024 Team Status: Inactive Member Role Status Dates AVTAR Montanez Attending Provider Active Star t: October 14, 2024 End: October 14, 2024 AVTAR Montanez Referring Provider Active Star t: October 14, 2024 End: October 14, 2024 Saira Peck [employer], [employer] Primary Care Provider Active Start: October 14, 2024 End: October 14, 2024 Team Status: Inactive Member Role Status Dates Saira Peck NP, [employer] Primary Care Provider Active Start: October 24, 2024 End: October 24, 2024 Saira Peck [employer], [employer] Referring Provider Active Start: October 24, 2024 End: October 24, 2024 AVTAR Montanez Attending Provider Active Star t: October 24, 2024 End: October 24, 2024 Team Status: Active Member Role/Relationship Status Dates Saira Peck NP, [employer] Primary Care Provider Active Team Status: Inactive Member Role/Relationship Status Dates AVTAR Montanez Attending Provider Active Star t: September 15, 2024 End: September 15, 2024 Team Status: Inactive Member Role/Relationship Status Dates Dr. Jacek Deleon MD Attending Provider Active S tart: September 15, 2024 End: September 15, 2024 Team Status: Inactive Member Role/Relationship Status Dates AVTAR Montanez Attending Provider Active Star t: October 14, 2024 End: October 14, 2024 AVTAR Montanez Referring Provider Active Star t: October 14, 2024 End: October 14, 2024 Saira Peck NP, [employer] Primary Care Provider Active Start: October 14, 2024 End: October 14, 2024 Team Status: Inactive Member Role/Relationship Status Dates Saira Peck NP, [employer] Primary Care Provider Active Start: October 24, 2024 End: October 24, 2024 Saira Peck [employer], [employer] Referring Provider Active Start: October 24, 2024 End: October 24, 2024 AVTAR Montanez Attending Provider Active Star t: October 24, 2024 End: October 24, 2024 Team Status: Inactive Member Role/Relationship Status Dates Saira Peck NP, [employer] Primary Care Provider Active Start: December 19, 2024 End: December 19, 2024 Saira Peck NP, [employer] Referring Provider Active Start: December 19, 2024 End: December 19, 2024 Dr. Bry Sal MD Attending Provider Active Start: December 19, 2024 End: December 19, 2024 Goals (unrecognized section and content) Goals may be documented in a n alternate section FOR RECORDS PERTAINING TO PATIENTS WHO ARE OR HAVE BEEN ENROLLED IN A CHEMICAL DEPENDENCY/SUBSTANCEABUSE PROGRAM, SOME INFORMATION MAY BE OMITTED. This clinical summary was aggregated from multiple sources. Caution should be exercised in using it in the provision of clinical care. This summary normalizes information from multiple sources, and as a consequence, information in this document may materially change the coding, format and clinical context of patient data. In addition, data may be omitted in some cases. CLINICAL DECISIONS SHOULD BE BASED ON THE PRIMARY CLINICAL RECORDS. [employer] provides no warranty or guarantee of the accuracy or completeness of information in this document.
[2024-12-25] MEDS: Magnesium 2 GM for ERAS IV (06:11)
[2024-12-25] MEDS: Lactated Ringers 1,000 ML 15 ML IV (06:13)
--- NOTE | 2024-12-25 06:43 | PCM.PRE.AN2 ---
ASA Classification* ASA Classification ASA Classification: 2 Assessment & Plan Anesthesia* Anesthesia Assessment Anesthesia Assessment: Discussed sedation and/or anesthesia options, risks, benefits, and alternatives with patient/parents/legal guardian/POA. Questions invited. The patient/parents/legal guardian/POA seems to understand and agrees to proceed with anesthesia plan. Reviewed the physical assessment, medical history, allergy history and patient home medications list prior to surgery/procedure/anesthetic and documented any changes. Performed airway and anesthesia risk assessments. Anesthesia Type Anesthesia Type: General Anesthesia Focused Assessment* Temperature: 98.5 F Pulse Rate: 75 Blood Pressure: 153/97 Respiratory Rate: 16 Pulse Ox: 98 Airway Assessment Mouth opens: >3 cm Mallampati Score: II Labs Anesthesia Preop lab: CBC WBC 6.5 K/mm3 (4.4-11.0) 12/15/24 09:09 12/15/24 RBC 5.43 M/mm3 (4.6-6.2) 12/15/24 09:09 12/15/24 Hgb 16.4 g/dL (13.0-16.5) 12/15/24 09:09 12/15/24 Hct 48.1 % (40-54) 12/15/24 09:09 12/15/24 Plt Count 355 K/mm3 (150-450) 12/15/24 09:09 12/15/24 CHEMISTRY Potassium 4.2 mmol/L (3.3-5.1) 12/15/24 09:09 12/15/24 Sodium 133 mmol/L (133-145) 12/15/24 09:09 12/15/24 Magnesium 1.6 mg/dL (1.5-2.2) 12/15/24 09:08 12/15/24 BUN 11 mg/dL (4-19) 12/15/24 09:09 12/15/24 Creatinine 0.86 mg/dL (0.70-1.20) 12/15/24 09:09 12/15/24 Glucose 166 mg/dL (70-99) H 12/15/24 09:09 12/15/24 COAG PT 12.0 SECONDS (11.7-14.9) 12/15/24 09:08 12/15/24 Pre-Assessment Diagnosis/Proposed Procedure Planned Operative Procedure(s): 360 LUMBAR FUSION ANTERIOR L2-3 L3-4 L4-5 AND REVISION OF POSTERIOR FUSION Anesthesia History Anesthesia History - chemist inorganic: Anesthesia History - chemist inorganic Hx Hospitalization Yes: LOW SODIUM/DEHYDRATION 12/08/24 09:52 Any Problems With Anesthesia No 12/08/24 09:52 Cholinesterase deficiency No 12/08/24 09:52 You/Your Family Experience No 12/08/24 09:52 fever (hyperthermia) with Relationship Recent Exposure to Contagious No 12/25/24 06:14 Disease Does patient have nerve No 12/08/24 09:52 stimulator Patient instructed to have device shut off --Does patient have Pacemaker No 12/25/24 06:14 or ICD? When Was Last Pacemaker Check QUESTION #4 FULL TEXT: You/Your Family Experience fever (hyperthermia) with Anesthesia Last Oral Intake Last Oral intake: Last Oral Intake NPO since 03:30 12/25/24 06:14 Meds taken in AM with sips of water? Meds patient instructed to take am of surgery PONV PONV - chemist inorganic: PONV - chemist inorganic Female No 12/08/24 09:52 HX of Motion Sickness No 12/08/24 09:52 HX of N/V After Surgery No 12/08/24 09:52 Non-Smoker Yes 12/08/24 09:52 Duration of Surgery greater Yes 12/08/24 09:52 than 60 minutes Number of Risk Factors 2 12/08/24 09:52 PONV Score Moderate Risk 12/08/24 09:52 Height & Weight Height & Weight: Anesthesia: Height & Weight Height 6 ft 12/25/24 06:14 Weight: 83.007 kg 12/25/24 06:14 Body Mass Index (BMI) 24.8 12/25/24 06:14 Respiratory Assessment Respiratory Assessment - chemist inorganic: Respiratory Tract Infection Hx - chemist inorganic Hx Respiratory Tract Infection No 12/08/24 09:52 STOP Sleep Apnea STOP Sleep Apnea - chemist inorganic: STOP Sleep Apnea - chemist inorganic Hx Hypertension Yes: CONTROLLED WITH MED 12/08/24 09:52 Hx Sleep Apnea No 12/08/24 09:52 CPAP BIPAP Do you snore loudly (louder No 12/08/24 09:52 than talking or can be heard Do you often feel tired/ No 12/08/24 09:52 fatigued/ sleepy during daytime? Has anyone observed you stop No 12/08/24 09:52 breathing during sleep? STOP Results Negative 12/08/24 09:52 QUESTION #5 FULL TEXT : Do you snore loudly (louder than talking or can be heard through closed doors)? 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 Specify any problems Hx of Preganancy in last 3 N/A 12/08/24 09:52 Months Nurse Filling Out Transfusion DSCHRIBER 12/08/24 09:52 & Questions: Date: 12/08/24 12/08/24 09:52 Time: 09:54 12/08/24 09:52 Patient unable to answer at this time (ie. confused, unrespo /Reproduction History /Reproductive History - chemist inorganic: /Reproductive Hx- chemist inorganic Hx Now No 12/08/24 09:52 Gestational Age (in weeks): EDC: Hx Hx Para Hx Section SAB No 12/08/24 09:52 Active Medications Active Medications: Current Medications Generic Name Dose Route Start Last Admin Trade Name Freq PRN Reason Stop Dose Admin Acetaminophen 1,000 mg 12/25/24 07:30 12/25/24 06:12 Acetaminophen 500 Mg Tablet PO 12/25/24 07:31 1,000 mg PREOP ONE Administration Cefazolin Sodium 2 gm/ Sodium 110 mls @ 150 mls/hr 12/25/24 07:30 Chloride IV 12/25/24 08:13 INTRAOP ONE Tranexamic Acid 1,000 mg/ 110 mls @ 440 mls/hr 12/25/24 07:30 Sodium Chloride IV 12/25/24 07:44 INTRAOP ONE Tranexamic Acid 1,000 mg/ 110 mls @ 440 mls/hr 12/25/24 07:30 Sodium Chloride IV 12/25/24 07:44 INTRAOP ONE Magnesium Sulfate 2 gm/ 104 mls @ 208 mls/hr 12/25/24 07:30 12/25/24 06:11 Dextrose IV 12/25/24 07:59 208 mls/hr PREOP ONE Administration Lactated Ringer's 1,000 mls @ 15 mls/hr 12/25/24 05:45 12/25/24 06:13 IV 15 mls/hr .Q48H ALEXA Administration Insulin Human Lispro 1 - 6 unit 12/25/24 07:30 12/25/24 06:12 Insulin Lispro 100 Unit/Ml Insuln.Pen SC 4 unit Q4H PRN PRN Administration BG>/= 180, SEE PROTOCOL Protocol PFSH Medical History Wears glasses Wears dentures Alcohol use Redness of skin Insulin dependent diabetes mellitus Arthritis High cholesterol Restless legs Back pain Dietary restriction Heartburn Former smoker Leg cramps History of edema Neuropathy Hypertension Home Medications ?Medication ?Instructions ?Recorded ?Last Taken ?Type insulin glargine 100 unit/mL 10 unit subcut BID DIABETES 09/15/24 12/24/24 History subcutaneous solution (Lantus U-100 Insulin) insulin lispro 100 unit/mL 1 sliding scale dose subcut 09/15/24 Unknown History subcutaneous pen USEASDIRECTD DIABETES lisinopril 5 mg tablet 10 mg PO QDAY BP 09/15/24 12/24/24 History metformin 500 mg tablet 500 mg PO BID DIABETES 09/15/24 12/24/24 History lorazepam 1 mg tablet (Ativan) 1 mg PO BID PRN claustrophobia #2 09/20/24 Unknown Rx tabs Allergy/AdvReac Type Severity Reaction Status Date / Time meperidine (From Demerol) Allergy Mild Nausea/Vom/ Verified 12/25/24 05:59 Diarrhea Surgical History History of back surgery Hx of left cataract extraction Hx of right cataract extraction History of lumbosacral spine surgery H/O left knee surgery H/O right knee surgery Social History Smoking Status: Former smoker alcohol intake: current alcohol intake frequency: 0-2 drinks per day substance use type: does not use Review of Systems (Anesthesia) ROS Narrative System reviewed and no additional complaints, except as documented.
--- NOTE | 2024-12-25 07:29 | PCM.HP.BLA ---
History and Physical Date of Admission: 12/25/24 MR#: [id number] Acct: [id number] Name: MARIELLA WINCHESTER Rep #: [id number] : 1955 Provider: Dr. Bry Sal MD Age/Sex: 68/M Location: [facility] [place] Status: Signed Intake Vital Signs 10/25/2507:28 12/20/2507:55 Height 6 ft 6 ft Weight: 180 lb 180 lb BMI 24.4 24.4 Intake Visit Reasons: lumbar spine Chief Complaint: lumbar spine Pre op Accompanied by: Self Is patient in pain?: Yes Pain scale (1-10): 5 Allergies meperidine (From Demerol) Allergy (Mild, Verified 12/19/24 09:01) Nausea/Vom/Diarrhea Medications ?Medication ?Instructions ?Recorded ?Confirmed ?Type insulin glargine 100 unit/mL 10 unit subcut BID DIABETES 09/15/24 12/19/24 History subcutaneous solution (Lantus U-100 Insulin) insulin lispro 100 unit/mL 1 sliding scale dose subcut 09/15/24 12/19/24 History subcutaneous pen USEASDIRECTD DIABETES lisinopril 5 mg tablet 5 mg PO QDAY BP 09/15/24 12/19/24 History metformin 500 mg tablet 500 mg PO BID DIABETES 09/15/24 12/19/24 History lorazepam 1 mg tablet (Ativan) 1 mg PO BID PRN claustrophobia #2 09/20/24 12/19/24 Rx tabs Have you fallen in the past year?: No PFSH Medical History Wears glasses Wears dentures Alcohol use Redness of skin Insulin dependent diabetes mellitus Arthritis High cholesterol Restless legs Back pain Dietary restriction Heartburn Former smoker Leg cramps History of edema Neuropathy Hypertension Surgical History History of back surgery Hx of left cataract extraction Hx of right cataract extraction History of lumbosacral spine surgery H/O left knee surgery H/O right knee surgery Social History Smoking Status: Former smoker alcohol intake: current alcohol intake frequency: 0-2 drinks per day substance use type: does not use HPI lumbar spine Details: This documentation accurately reflects the service provided and the decisions made by me, Dr. Bry Sal MD 12/19/24 [id number]. Part of today?s visit was documented by Angelica Loco MA, acting as scribe. MARIELLA WINCHESTER is a 68 year old M here today for lumbar spine pre op. Patient would like to know more about the surgery. He would like to know what he can and can't do after the surgery. Patient states that lately his pain has been more aggravating a little bit more. The pain is in the same spot on the right side of the lower back. He hasn't had any recent injections. Patient hasn't done any recent physicla therapy. The patient is a 68-year-old male presenting for evaluation and management of worsening lumbar spinal stenosis symptoms and preparation for upcoming spinal surgery. The patient reports increased difficulty in finding comfortable positions due to worsening pain, which now occurs even when lying down. The pain primarily affects the right side, radiating to the thigh and occasionally down the leg, but not below the knee. He is limited to walking approximately 100 yards before needing to rest due to pain and tightness in the back. The patient has a history of lumbar fusion surgery at L3-4 performed 20 years ago due to similar symptoms, although the current symptoms are more severe. Previous interventions included a laminectomy to relieve nerve compression. The patient also reports significant knee osteoarthritis, with a history of multiple surgeries including patellar and meniscal repairs, but no knee replacements. He experiences swelling and requires assistance from railings when navigating stairs due to knee pain. The patient has diabetes mellitus, managed with insulin, with a recent HbA1c of 6.5%. He denies smoking and reports good nutritional intake, including calcium supplements. - Musculoskeletal: Reports worsening back pain, radiating to the right thigh, with difficulty walking more than 100 yards. Denies pain below the knee. - Musculoskeletal: Reports knee pain with swelling, requiring assistance from railings when using stairs. - Endocrine: Reports diabetes mellitus, managed with insulin. - General: Denies smoking. Attestation: Documentation on this patient encounter was supported using ambient scribe technology/ voice AI technology. The patient consented to recording for the purpose of documenting the encounter. Provider reviewed content of the generated note prior to signature. 10/24/24: MARIELLA WINCHESTER is a 68 year old M here today for lumbar spine MRI review. Patient would like to go over the MRI to discuss what the next step is. He denies any recent injections or physical therapy since his last visit. Patient states that every day the pain gets worse, and seems like there is a new sore spot. So that on occasion he does get some left-sided anterior thigh pain, all of his radicular symptoms do not appear to be consistent and changes on a daily basis. Patient reports a prior varicocelectomy on the right side with a small right sided groin incision. HPI from 09/15/24: MARIELLA WINCHESTER is a 68 year old M here today for lumbar spine. Pt. reports his low back pain began after pulling weeds 25 years ago and he had a lumbar surgery shortly after. He states his low back progressively worsened and he had another lumbar surgery 3 years ago where had a L3-4 fusion at the [facility] by Dr. Gardner. He states the surgery was helpful for 9 months. He states his low back is painful equal across and worsens with weight bearing. Says that he gets very tight low back pain and says that after about 100 steps he says that he gets worsening back pain and he has to sit down and lean forward in order to resolve this pain. Says that after the pain gets better he is able to then walk for another 100 steps before once again needing to sit down. Says that he needs to lean on a shopping cart when going to a grocery store in order to make it further into the store. He says that he primarily has very tight low back pain which is worse in the morning and does get a little bit better throughout the day as he is moving. He also mentions that he can only stand for about 5 to 10 minutes due to the back pain before it worsens and he needs to sit down. The patient does not use a cane or walker. No physical therapy after his surgery. He states it is constantly tight and cracks frequently especially in the morning. He states his pain will intermittently will radiate down his bilateral thighs to his knees. He has been seen by a chiropractor which has not been helpful. He has not done PT recently. Hx of diabetes, last a1c was 6.8, no heart or lung issues, no blood thinners. Ortho Exam General General: Yes no acute distress Neurologic: Yes alert and Yes oriented x3 Spine SPINE TESTING CERVICAL THORACIC LUMBAR Musculoskeletal Strength 0=absent - 5=normal Details: Neurological exam of the lower extremities shows 5x5 power. Normal sensations across all dermatomes. No hyperreflexia. No midline or paraspinal tenderness. Physical examination of the back shows a well-healed midline incision. Exam Narrative - Musculoskeletal: Strength testing of lower extremities was performed, including hip flexion and knee extension, with no significant weakness noted. - Musculoskeletal: Examination of knees revealed no acute tenderness on palpation. Coding Level of Care Code Off vis,est,level 4 Diagnoses History of lumbar fusion Z98.1 Adjacent segment disease of lumbar spine with history of fusion procedure M51.369; Z98.1 Lumbar stenosis without neurogenic claudication M48.061 Time Spent (min) 35 Assessment and Plan Assessment and Plan (1) History of lumbar fusion: Status: Acute (2) Adjacent segment disease of lumbar spine with history of fusion procedure: Status: Acute (3) Lumbar stenosis without neurogenic claudication: Status: Acute Plan Again reviewed prior x-rays show a prior L3-4 fusion with hardware in good position. There is a dextroscoliosis, multilevel disc height loss throughout the lumbar spine, degenerative changes at L4-5 with vacuum phenomenon and also a disc height loss at L5-S1. Reviewed MRI from October 14, 2024 which shows L2-3 stenosis and L4-5 small anterolisthesis of L4 on L5 with a mild broad based disc bulge without any significant canal stenosis, L5-S1 disc height loss with a mild central disc bulge without any significant canal stenosis. 1. Lumbar spinal stenosis - The patient is scheduled for spinal surgery to address worsening symptoms. - The plan includes decompression and fusion at L2-3 and L4-5, with removal and replacement of previous hardware. - Postoperative care will focus on early mobilization to prevent complications. 2. Knee osteoarthritis - The patient will continue to manage symptoms conservatively, as knee replacement is not currently planned. - Post-surgery, attention will be given to ensure knee pain does not hinder rehabilitation. 3. Diabetes mellitus - The patient's diabetes is managed with insulin, and maintaining good glycemic control is emphasized to aid in surgical recovery and bone healing. - Stop taking aspirin one week before surgery. - Follow pre-surgery instructions, including fasting after midnight before surgery day. - Engage in early mobilization post-surgery to aid recovery and prevent complications. - Maintain good glycemic control and nutritional intake to support healing. Explained imaging findings in detail. At this time due to the patient's ongoing low back pain which makes it difficult for him to stand for more than 5 to 10 minutes at a time which has been significantly decreasing his quality of life discussed surgical options today which would include an L2-5 fusion and revision. Discussed this procedure in detail and explained the risks, benefits and alternatives. The risks of surgery include but are not limited to infection, bleeding, injury to nerves or vessels, need for further surgery, ileus, vascular injury, visceral injury, DVT, pulmonary embolism, pneumonia, atelectasis, cardiopulmonary event, pseudoarthrosis, hardware failure, gait abnormality, adjacent segment degeneration. Discussed post-surgery restrictions in detail such as no bending, lifting, or twisting. Answered all questions to the patient?s satisfaction. Patient understands and agrees to proceed with surgery. Consent was signed.
--- NOTE | 2024-12-25 07:30 | RAD_ITS ---
PROCEDURE: L/S SPINE MIN 4 VIEWS 12/25/2024 REASON FOR EXAM: 360 LUMBAR FUSION L2-3, L3-4, L4-5, L5-S1 TECHNIQUE: L/S SPINE MIN 4 VIEWS FINDINGS: Intraoperative fluoroscopy was performed. L2-3, L3-4, L4-5, L5-S1 lumbar fusion. See procedure report for full details. RAD/L/S Spine Min 4 Views IMPRESSION: As above. Reading Location: [id number]
--- NOTE | 2024-12-25 14:52 | PCM.POST.ANE ---
Anesthesia: Postop Eval I Current Vital Signs Temperature: 98.2 F Pulse Rate: 92 Blood Pressure: 165/90 Respiratory Rate: 16 Pulse Ox: 98 Oxygen Delivery Method: Nasal Cannula Oxygen Flow Rate (L/min): 2 Assessment Airway patent: Yes Spontaneous unlabored respirations: Yes Mental status: Awake and Calm nausea: No Vomiting: No Anesthesia Complication: No Fluid Hydration Crystalloid volume administer (ml): 2,400 Total IV fluid infused: 2,400 Progress Note Anesthesia document: Postop Eval 1 completed: Yes
--- NOTE | 2024-12-25 14:53 | OP.PCM_ITS ---
Procedures Musculoskeletal [id number]: Other Procedure See Report Operative Report (Standard) Operative Information Date of Procedure: 12/25/24 Pre-Operative Diagnosis: L2-3, L4-5 disc degeneration, stenosis with neurogenic claudication, prior L3-S1 laminectomy, prior L3-4 fusion, degenerative scoliosis, L4-5 spondylolisthesis Post-Operative Diagnosis: Same Surgery/Procedure Performed: L2-3, L4-5 oblique lumbar body fusion pulper operator: Yes Manager Of Distribution: Dioni Sandoval Tasks completed by first line production supervisor: Opening & closing, Dissecting tissue, Altering tissue, Hemostasis: Electrocautery, Retracting and Other ([id number] surgery-access) Additional workers compensation claims assistant?: Yes Additional Child'S Nurse #2: Daniel Agosto Tasks completed by workers compensation claims assistant #2: Closing, Hemostasis: Electrocautery and Retracting Type of Anesthesia: General RN Documented Start/Stop Times: Operation Date: 12/25/24 07:30 Case Time Into Pre-Op 12/25/24 05:39 Out of Pre-Op 12/25/24 07:36 Anesthesia Start 12/25/24 07:43 Into Room 12/25/24 07:43 Procedure Start 12/25/24 08:23 Procedure End 12/25/24 14:35 Anesthesia End 12/25/24 14:41 Out of Room 12/25/24 14:41 Procedure Start Time: 08:23 Procedure Stop Time: 14:35 Select all DRAINS/GRAFTS/IMPLANTS that apply: Graft Graft details: Allograft cancellous chips, autologous iliac crest bone marrow aspirate and Implanted device Implanted device details: DePuy cougar lateral lumbar interbody cage Estimated Blood Loss: 200 cc Specimen collected: No Description of surgery: Preoperative diagnosis: L4-5 spondylolisthesis, L2-3, L4-5 disc degeneration, stenosis with neurogenic claudication, degenerative scoliosis, prior L3-4 fusion, prior L3-S1 laminectomy Postoperative diagnosis: Same Name of procedures L2-3, L4-5 oblique lumbar interbody fusion (OLIF), minimally invasive left sided approach, lateral decubitus: ? L2-3 anterolateral spinal fusion ? L4-5 anterolateral fusion /51 ? L2-3 insertion of cage 46969 ? L4-5 insertion of cage 12230/51 ? Bone graft aspirate left iliac crest separate incision ? Allograft cancellous chips Attending Surgeon: Dr. Bry Sal Co-surgeon: Dr. Dioni Sandoval Estimated blood loss: 200 mL Anesthesia: General Complications: None Indications: Patient is a 68-year-old pleasant gentleman who has had a long history of low back pain and lower extremity radiation, difficulty walking distances. Xrays & MRI revealed L2-3, L4-5 disc degeneration with stenosis, L4-5 spondylolisthesis, degenerative scoliosis, postsurgical changes of L3-4 fusion, L3-S1 laminectomy. After undergoing a prolonged period of nonoperative treatment, the patient elected to undergo surgical decompression & fusion. All surgical options were discussed with the patient including anterior and posterior approaches. All risks and benefits associated with the procedure were explained to the patient. The risks include but are not limited to infection, bleeding, injury to nerves and vessels including major vessels like IVC and aorta, persistent paresthesia, persistent pain, dural tear, need for further procedures, adjacent segment degeneration, pseudoarthrosis, hardware failure, retrograde ejaculation, paralytic ileus, etc. Procedure: The patient was identified in the preoperative holding suite using Unique patient identifiers. Skin was marked, consent was reviewed, and all questions were answered. The patient was then brought back to the operative room. A surgical timeout was performed to make sure correct procedure was being done on the correct patient and all operative room staff were on the same page. General endotracheal anesthesia was then given to the patient. Rodriguez catheter was inserted. The patient was then carefully positioned in right lateral decubitus position with the left side up on a regular OR table. Axillary roll was placed and all bony prominences were well- padded. Hip positioners were placed in the posterior buttocks and anterior sternal area. The surgical area was prepped and draped in usual fashion. Preoperative antibiotic was injected IV as preoperative antibiotic. A final timeout was then again done just before starting the procedure. A 2 inch incision oblique was taken in the left lower quadrant of the abdomen 2 fingerbreadths away from the iliac crest and the lower ribs. Sharp dissection with Bovie was carried out up to the fascia covering the external oblique. The external oblique, internal oblique and transversus abdominis muscles were split along the muscle fibers and retroperitoneal space was entered. Sponge sticks were utilized to move the bowel and peritoneum cuo-bh-emf-way and psoas muscle was exposed staying within the retroperitoneal plane. Xintu Shuju retractor system was positioned and the retractor blade was applied onto the psoas. The interval between psoas and midline structures was developed and appropriate retractors were placed. Once adequate interval was cleared, a disc space was identified and a marker x-ray was taken. This identified the L4-5 disc level. The prepsoas interval was then traced superiorly to expose the L2-3 disc. Annulotomy was done with a long handled knife starting at L4-5. Pituitary was used to remove disc material. Curettes were used to prepare the endplates. Disc space spreaders were utilized to distract and increase the disc height. Near complete discectomy was performed. Trials of serially increasing sizes were used. A Jamshidi needle was used to aspirate bone marrow from the left anterior iliac crest through a separate incision and this aspirate was mixed with the allograft bone chips. A Depuy [place] cage of size of the 18 x 55 x 12 mm with 15 degrees lordosis was packed with corticocancellous allograft bone chips mixed with bone marrow aspirate. This was inserted into the L4-5 disc space. The retractors were then repositioned to expose the L2-3 disc and the procedure was repeated with complete discectomy and endplate preparation. Smaller disc distractors were also used to bluntly perform a contralateral annulotomy at both levels. Cage size was 18 x 15 x 14 mm at L2-3. AP and lateral C-arm pictures were taken to confirm acceptable position of the cages. some bone chips were also packed around the cages. Screw with washer was placed into the upper L3 body with a washer partially covering the cage at L2-3. Significant bleeding from the L2 segmental vein was noticed which was controlled with the help of Floseal, Surgicel, and packing. Please see details in Dr. Sandoval's note. Hemostasis was confirmed. The retractor blades were removed. Closure was done in layers with a continuous strand of # 1 Vicryl in all muscle layers. 2-0 Vicryl was used for subcutaneous tissue and 4-0 for Monocryl for the skin. Steri-Strips were applied and 4 x 4 gauze and Tegaderm were applied. Surgical Findings: See operative note Complications Complications: No
--- NOTE | 2024-12-25 14:56 | POSTOPAN2_ITS ---
Anesthesia Postop Eval I Sum Postop Eval Completion status Anesthesia document: Postop Eval 1 completed: Yes Anesthesia Postop Eval I Summary Anesthesia Postop Eval I Summary: Anesthesia Postop Eval I: Assessment Summary Airway patent Yes 12/25/24 14:53 PATIENT [email or web address].SHOF Spontaneous unlabored Yes 12/25/24 14:53 PATIENT ACCESS.SHOF respirations Mental status Awake,Calm 12/25/24 14:53 PATIENT ACCESS.SHOF nausea No 12/25/24 14:53 PATIENT ACCESS.SHOF Vomiting No 12/25/24 14:53 PATIENT [email or web address].SHOF Anesthesia Postop Eval I: Fluid Summary Crystalloid volume administer 2,400 12/25/24 14:53 PATIENT ACCESS.SHOF (ml) Colloids volume administered ( ml) Blood Product volume administered (ml) Total IV fluid infused 2,400 12/25/24 14:53 PATIENT [email or web address].SHOF Anesthesia Postop Eval I: Summary Notes Anesthesia Complication No 12/25/24 14:53 PATIENT [email or web address].SHOF Anesthesia Complication Comment: Post-operative progress note Anesthesia: Postop Eval II Evaluation Mental status: Awake Pain Level: 3 nausea: No Vomiting: No
--- NOTE | 2024-12-25 14:56 | PCM.POSTANE2 ---
Anesthesia Postop Eval I Sum Postop Eval Completion status Anesthesia document: Postop Eval 1 completed: Yes Anesthesia Postop Eval I Summary Anesthesia Postop Eval I Summary: Anesthesia Postop Eval I: Assessment Summary Airway patent Yes 12/25/24 14:53 BROADBAND [email or web address] Spontaneous unlabored Yes 12/25/24 14:53 BROADBAND [email or web address] respirations Mental status Awake,Calm 12/25/24 14:53 BROADBAND [email or web address] nausea No 12/25/24 14:53 BROADBAND [email or web address] Vomiting No 12/25/24 14:53 BROADBAND [email or web address] Anesthesia Postop Eval I: Fluid Summary Crystalloid volume administer 2,400 12/25/24 14:53 BROADBAND [email or web address] (ml) Colloids volume administered ( ml) Blood Product volume administered (ml) Total IV fluid infused 2,400 12/25/24 14:53 BROADBAND [email or web address] Anesthesia Postop Eval I: Summary Notes Anesthesia Complication No 12/25/24 14:53 BROADBAND [email or web address] Anesthesia Complication Comment: Post-operative progress note Anesthesia: Postop Eval II Evaluation Mental status: Awake Pain Level: 3 nausea: No Vomiting: No
--- NOTE | 2024-12-25 15:01 | OP.PCM_ITS ---
Procedures Musculoskeletal 20xxx-29xxx: Other Procedure See Report Operative Report (Standard) Operative Information Date of Procedure: 12/25/24 Pre-Operative Diagnosis: L2-3, L4-5 disc degeneration, stenosis with neurogenic claudication, prior L3-S1 laminectomy, prior L3-4 fusion, degenerative scoliosis, L4-5 spondylolisthesis Post-Operative Diagnosis: Same Surgery/Procedure Performed: L2-5 posterior spine instrumented fusion, removal of previous L3-4 hardware, exploration of fusion transverse abdominal muscle nurse: Yes Head Of Visual Merchandising: Daniel Agosto Tasks completed by central supply assistant: Closing, Removing tissue, Implanting device, Hemostasis: Electrocautery and Retracting Type of Anesthesia: General RN Documented Start/Stop Times: Operation Date: 12/25/24 07:30 Case Time Into Pre-Op 12/25/24 05:39 Out of Pre-Op 12/25/24 07:36 Anesthesia Start 12/25/24 07:43 Into Room 12/25/24 07:43 Procedure Start 12/25/24 08:23 Procedure End 12/25/24 14:35 Anesthesia End 12/25/24 14:41 Out of Room 12/25/24 14:41 Procedure Start Time: 08:23 Procedure Stop Time: 14:35 Select all DRAINS/GRAFTS/IMPLANTS that apply: Graft Graft details: Allograft cancellous chips and Implanted device Implanted device details: DePuy Viper prime pedicle screw instrumentation Estimated Blood Loss: 200 cc Specimen collected: No Description of surgery: Preoperative diagnosis: L4-5 spondylolisthesis, L2-3, L4-5 disc degeneration, stenosis with neurogenic claudication, degenerative scoliosis, prior L3-4 fusion, prior L3-S1 laminectomy Postoperative diagnosis: Same Name of procedures: L2-5 posterior percutaneous pedicle screw instrumented fusion, removal of previous L3-4 hardware, exploration of fusion at L3-4, prone: ? L2-3 posterior spinal fusion 31171 ? L2-5 posterior pedicle screw instrumentation 38216 ? L4-5 posterior fusion 51090/51 . L3-4 removal of posterior hardware . L3-4 exploration of fusion ? Allograft cancellous chips Attending Surgeon: Dr. Bry Sal Estimated blood loss: 200 mL (total for entire case) Anesthesia: General Complications: None Description of procedure: After the anterior procedure was complete, the patient was then turned supine. The patient was then transferred to Camacho table in prone position. Back was prepped and draped in usual fashion. C-arm AP view was then taken. C-arm was positioned in a way that L2 was centralized and superior endplate of was parallel to the beam. Spinous process was centered between the pedicles. Midline was marked with skin marker and lateral borders of the pedicles were also marked. Skin marker was also utilized to joe transversely across the middle of the pedicles at L2. 2 transverse paramedian incisions of 1 inch were placed. The fascia was incised vertically. Finger dissection was utilized to palpate the transverse process and facet joint. Viper Prime screws with towers were inserted and docked onto the transverse processes. This was then slowly moved medially to reach the superior articular process of L2. This was then confirmed on C-arm and then a mallet was utilized to drive the trocar into the pedicle going up to the medial wall of the pedicle on AP view. This was performed both sides. C-arm lateral view confirmed that the tip of the trocar was in the vertebral body, and the screw was advanced into the pedicle and vertebral body. This was repeated similarly at L5. Screw sizes were 7 x 55 mm at L2 and L5 on both sides. Tubular retractors were then used through a vertical paramedian incision to expose the prior L3-4 instrumentation. Setscrews were removed, the huang was removed, and then the pedicle screws were removed at L3-4. The previous pedicle screw sizes were 6.5 x 45 each. Adequate fusion was noticed posteriorly at L3- 4. 7 x 50 mm pedicle screws were placed in L3 bilaterally through the previous screw holes. 100 mm precontoured titanium 5.5 mm lordotic huang on both sides were then passed through the screw extensions and reduced down to the screws with the help of [employer] instrumentation system on both sides. AP and lateral view of the C-arm showed good positioning of the screws and cages. Final tightening with the torque screwdriver was then completed. Lynette was utilized to roughen the facet joint at L2-3 and L4-5 on the right side. Cancellous allograft bone chips mixed with bone marrow aspirate were then placed over this decorticated area. Hemostasis was achieved. Closure was done in layers with 0 Vicryls for the fascia, 2-0 Vicryls for the subcutaneous tissue, and Monocryl for the skin. Dermabond was applied. Dressings were applied covered with Tegaderm. The patient was then turned supine onto a hospital bed. The patient was extubated and taken to PACU in stable condition. The patient tolerated the procedure well and no complications occurred. [employer] [place] cage & Viper Prime minimally invasive pedicle screw instrumentation system was utilized in this case. No dural tear was identified intraoperatively. I was present for the entirety of the case and performed the surgery. Surgical Findings: See operative note Complications Complications: No
--- NOTE | 2024-12-25 16:46 | OP.PCM_ITS ---
Operative Report (Standard) Operative Information Date of Procedure: 12/25/24 Pre-Operative Diagnosis: L2-3, L4-5 disc degeneration, stenosis with neurogenic claudication, prior L3-S1 laminectomy, prior L3-4 fusion, degenerative scoliosis, L4-5 spondylolisthesis Post-Operative Diagnosis: Same Surgery/Procedure Performed: L2-3, L4-5 oblique lumbar body fusion rn placement: Yes Corrections Corporal: Daniel Agosto Tasks completed by dental laboratory assistant: Opening, Closing, Opening & closing and Retracting Type of Anesthesia: General RN Documented Start/Stop Times: Operation Date: 12/25/24 07:30 Case Time Into Pre-Op 12/25/24 05:39 Out of Pre-Op 12/25/24 07:36 Anesthesia Start 12/25/24 07:43 Into Room 12/25/24 07:43 Procedure Start 12/25/24 08:23 Procedure End 12/25/24 14:35 Anesthesia End 12/25/24 14:41 Out of Room 12/25/24 14:41 Into Recovery 12/25/24 14:45 Procedure Start Time: 08:20 Procedure Stop Time: 11:45 Select all DRAINS/GRAFTS/IMPLANTS that apply: Graft Graft details: Allograft cancellous chips, autologous iliac crest bone marrow aspirate and Implanted device Implanted device details: DePuy cougar lateral lumbar interbody cage Estimated Blood Loss: 200 Specimen collected: No Description of surgery: Name of procedures L2-3, L4-5 oblique lumbar interbody fusion (OLIF), minimally invasive left sided approach, lateral decubitus: ? L2-3 anterolateral spinal fusion 85561 ? L4-5 anterolateral fusion 35413/51 ? L2-3 insertion of cage 92705 ? L4-5 insertion of cage 36861/51 ? Bone graft aspirate left iliac crest separate incision ? Allograft cancellous chips HPI: Patient is a 60-year-old male with multilevel lumbar degenerative disc disease and prior multilevel laminectomy and single level fusion. He has had advancement of his disease in the adjacent levels and was assessed by Dr. Sal and found to be appropriate for oblique lumbar interbody fusion. Vascular surgery services are requested to aid in exposure for the procedure. Description of procedure: Upon obtaining informed consent and verification correct patient procedure site the patient was taken to the operating where he was placed under general anesthesia. He was then positioned prepped and draped in usual sterile fashion time was performed. Oblique incision was made superior to the iliac crest and Bovie used to dissect through subcutaneous tissue to the level of the fascia. Hand-held retractors and put in position and the fascia incised parallel to the fibers of the external bleak muscle. The muscle fibers were then split bluntly and the handle retractor moved deeper in the wound. Subsequently the internal oblique and transverse abdominis muscles were split parallel to their fibers with retractors moved deeper into the wound. Once the retroperitoneal space was entered blunt dissection was utilized to mobilize the abdominal contents from the lateral posterior abdominal wall until the psoas mus marcello was visualized. At this point the Syn Frame was placed in the position and retractor blades attached. Combination of blunt and Bovie dissection was utilized to dissect free the L4-L5 disc at which point Dr. Sal performed his discectomy and device implant which he will describe in further detail separately. We then turned our attention to the L2-L3 disc space which was dissected free with combination of Bovie and blunt dissection. The retractor blades were repositioned optimal visualization was obtained Dr. Sal performed his discectomy and device implant which he will describe separately. After completing this portion during the placement of the screw and washer significant bleeding was encountered the lateralmost aspect of the vertebral body at the junction with the mobilized segment of the psoas. This appeared to be either from the vertebral awl or from supervisor phosphorus processing branches within the psoas itself. Initial efforts to obtain hemostasis with Bovie were unsuccessful so hemostatic agents Surgiflo, Surgicel, and Hemoblast were applied followed by prolonged manual pressure with a tamp with ultimately satisfactory hemostasis observed. In order to avoid disturbing this location the screw and washer replaced inferior to the implant. Retractor blades were then removed sequentially and the retroperitoneum observed for hemostasis which was found to be adequate. The superficial wound was then irrigated with saline and the abdominal musculature closed individually in layers with 1 Vicryl. The subcutaneous wound was then irrigated with saline and closed with 2-0 Vicryl followed by 3-0 Vicryl and 4-0 Monocryl for the skin. The patient was then repositioned for posterior approach with Dr. Sal which he will dictate separately. Surgical Findings: see above Complications Complications: No
[2024-12-25] MEDS: 0.9% Saline Lock 10 ML Syringe IV ×2 (18:01→18:33)
[2024-12-25] MEDS: Cefazolin 2 GM in 0.9% Normal Saline (100mL Bag) 100 ML IV ×2 (18:02→22:56)
[2024-12-25] MEDS: Senna/Docusate Sodium 1 Tablet 2 TABLET PO (21:54)
--- NOTE | 2024-12-25 22:09 | NURSING ---
pt stood at the bedside. encouraged pt to walk in the room. refused at this time. pt returned to bed. pt tolerated well. he didn't need any assistance with his legs. pt also asked about Dilaudid. prn oxy given
--- NOTE | 2024-12-26 00:34 | NURSING ---
pt walked in the pandey. tolerated well.
[2024-12-26] MEDS: 0.9% Saline Lock 10 ML Syringe IV ×3 (00:49→20:50)
[2024-12-26 02:33] VITALS: BP 142/74; PULSE 98; RESP 16; TEMP 36.8; O2SAT 99
--- NOTE | 2024-12-26 05:00 | RAD_ITS ---
PROCEDURE: LUMBAR SPINE 2 OR 3 VIEWS 12/26/2024 REASON FOR EXAM: POSTOP DAY 1 SPINE SURGERY TECHNIQUE: LUMBAR SPINE 2 OR 3 VIEWS COMPARISON: 09/15/2024 FINDINGS: Moderate scoliosis. Status post posterior fusion and decompression, L2 through L5, intact hardware. Status post disc spacer placement, L2-L3, and L4-L5, anatomic alignment. Scattered lumbar spine degeneration. No acute bone or soft tissue pathology. RAD/Lumbar Spine 2 or 3 Views IMPRESSION: Lumbar spine scoliosis and degeneration. Recent postoperative change without complication noted. [facility]
[2024-12-26 05:56] LABS: Hematocrit 38.8 % (40-54); Hemoglobin 13.3 g/dL (13.0-16.5); Immature Granulocytes Count 0.050 X10^3/uL (0.0-0.0); Mean Corp Hgb Conc 34.3 g/dL (32-36); Mean Corpuscular Volume 90.4 fL (80-94); Mean Platelet Vol. 8.6 fl (6.2-12.0); NRBC Flagged by Analyzer 0 % (0-5); POSITIVE DIFFERENTIAL YES; Platelet Count 338 K/mm3 (150-450); RBC Distribution Width CV 14.4 % (11.6-14.6); RBC Distribution Width SD 47.6 fl (35.1-43.9); Red Blood Count 4.29 M/mm3 (4.6-6.2); White Blood Count 12.3 K/mm3 (4.4-11.0)
[2024-12-26 05:58] LABS: Differential Indicated SCAN CRITERIA MET
[2024-12-26 06:11] LABS: Anion Gap 16 (5-15); BUN 12 mg/dL (4-19); BUN/Creat Ratio 11.6 RATIO (10-20); Calcium,Total 9.1 mg/dL (7.6-11.0); Carbon Dioxide 18.9 mmol/L (21.0-32.0); Chloride 94 mmol/L (98-108); Estimated Creatinine Clearance 78.38 ml/min (50-250); Glucose 330 mg/dL (70-99); Potassium 4.5 mmol/L (3.3-5.1)
[2024-12-26 06:35] VITALS: BP 150/93; PULSE 96; RESP 16; TEMP 36.8; O2SAT 100
[2024-12-26 07:06] LABS: Differential Comment SCANNED
[2024-12-26 08:33] VITALS: BP 155/101; PULSE 96; RESP 18; TEMP 36.3; O2SAT 97
[2024-12-26] MEDS: Senna/Docusate Sodium 1 Tablet 2 TABLET PO ×2 (08:45→20:52)
--- NOTE | 2024-12-26 09:01 | PCM.PN.HOSP ---
Reason for Visit Chief Complaint: Back Pain Subjective Subjective Pt denies any issues. Says he takes his insulin but isn't on it here. Also decadron. Objective Data Objective Data Vital Signs: Vital Signs Temp Pulse Resp BP Pulse Ox O2 Del Method O2 Flow Rate 97.4 F L 96 18 155/101 H 97 Room Air 2 12/26/24 08:33 12/26/24 08:33 12/26/24 08:33 12/26/24 08:33 12/26/24 08:33 12/26/24 08:33 12/25/24 23:40 Oxygen Flow Rate (L/min) 2 Oxygen Delivery Method Room Air Weight: 83.007 kg Body Mass Index (BMI) 24.8 Intake & Output: Intake and Output for Last 24 Hours 12/24/24 12/25/24 12/26/24 23:59 23:59 23:59 Intake Total 472 / 472 300 / 300 Output Total 1000 / 1000 Balance -528 / -528 300 / 300 Lab / Micro Data 12/26/24 05:20 12/26/24 05:20 Labs: Laboratory Results - last 24 hr 12/25/24 07:47: POC Glucose 211 H 12/25/24 09:50: POC Glucose 216 H 12/25/24 11:32: POC Glucose 222 H 12/25/24 13:43: POC Glucose 218 H 12/25/24 14:50: POC Glucose 263 H 12/25/24 16:48: POC Glucose 264 H 12/25/24 23:38: POC Glucose 393 H 12/26/24 05:20: WBC 12.3 H, RBC 4.29 L, Hgb 13.3, Hct 38.8 L, MCV 90.4, MCH 31.0, MCHC 34.3, RDW Std Deviation 47.6 H, RDW Coeff of Yasmani 14.4, Plt Count 338, MPV 8.6, Immature Gran % (Auto) 0.400, Neut % (Auto) 79.5 H, Lymph % (Auto) 7.3 L, [place] % (Auto) 12.6 H, Eos % (Auto) 0.0, Baso % (Auto) 0.2, Absolute Neuts (auto) 9.8 H, Absolute Lymphs (auto) 0.89, Nucleated RBC % 0, Differential Comment SCANNED, Sodium 129 L, Potassium 4.5, Chloride 94 L, Carbon Dioxide 18.9 L, Anion Gap 16 H, BUN 12, Creatinine 0.99, Estim Creat Clear Calc 78.38, Est GFR (MDRD) Non-Af 83, BUN/Creatinine Ratio 11.6, Glucose 330 H, Calcium 9.1 12/26/24 06:40: POC Glucose 327 H Micro: Microbiology 12/15/24 09:09 Swab (Method) Nasal Screen MRSA/MSSA - Final Radiography Diagnostic Testing: Radiology Impression Lumbar Spine X-Ray 12/25/24 07:30 IMPRESSION: As above. Reading Location: [facility] Lumbar Spine X-Ray 12/26/24 05:00 IMPRESSION: Lumbar spine scoliosis and degeneration. Recent postoperative change without complication noted. Reading Location: [place] [id number] Physical Exam Const alert, oriented x3, no apparent distress, average body habitus, healthy appearing and well nourished HEENT head/scalp atraumatic and moist oral mucous membranes Head and Scalp: normocephalic Resp normal respiratory effort, no retractions, no use of accessory muscles and clear to auscultation bilaterally Auscultation: Negative for rales, rhonchi or wheezes Cardio regular rate, regular rhythm, S1 normal heart sound, S2 normal heart sound, no murmurs, no rub, no gallops and no clicks GI normal to inspection, nondistended, normoactive bowel sounds, soft to palpation and non-tender Extremity no clubbing, cyanosis or edema Extremity Narrative: 2+ pedal pulses Neuro oriented x3, moves all extremities and no focal motor deficits Speech: speech normal Psych affect normal Psych Narrative: very pleasant Assessment & Plan Assessment/Plan (1) Status post lumbar spinal fusion: (2) Degenerative disc disease, lumbar: (3) Hyperglycemia: (4) Hypertension: PLAN: Plan DDD s/p 360 lumbar fusion -POD 1 -was given post op decadron -mgt per primary DM 1.5 with Hyperglycemia -likely stress response and decadron -restart home lantus -SSI -continue metformin HTN -BP is elevated but no change in residential meds for now -continue home lisinopril -add prn hydralazine for SBP >160 mmHg H/O Tobacco Abuse -no current issues DVT prophylaxis -Per primary Charges/Coding Visit Charges Inpatient E&M: 57158 Subs Hosp L2
[2024-12-26] MEDS: Insulin Glargine-YFGN 100 UNIT/ML Pen 10 UNIT SC ×2 (10:21→20:47)
--- NOTE | 2024-12-26 10:25 | CASEMGMT ---
Dx:360 lumbar fusion LACE:1 6-Clicks:24, PT and OT eval'd and no therapy recommended. Medical record reviewed and patient evaluated for identification of discharge planning needs. Based on this review, at this time criteria are not present to indicate a need for discharge planning. Will remain available to assist with discharge planning needs as identified or requested.
--- NOTE | 2024-12-26 12:49 | PCM.PN.ORT ---
Subjective Subjective Postop day 1 status post L2-5 fusion. Had significant pain postoperatively, but much improved this morning. Patient has been able to ambulate. Cleared PT. No flatus when I saw him this morning at 8 AM. Objective Data Objective Data Vital Signs: Vital Signs Temp Pulse Resp BP Pulse Ox O2 Del Method O2 Flow Rate 97.4 F L 96 18 155/101 H 97 Room Air 2 12/26/24 08:33 12/26/24 08:33 12/26/24 08:33 12/26/24 08:33 12/26/24 08:33 12/26/24 08:33 12/25/24 23:40 Oxygen Flow Rate (L/min) 2 Oxygen Delivery Method Room Air Weight: 183 lb Body Mass Index (BMI) 24.8 Intake & Output: Intake and Output for Last 24 Hours 12/24/24 12/25/24 12/26/24 23:59 23:59 23:59 Intake Total 472 / 472 300 / 300 Output Total 1000 / 1000 Balance -528 / -528 300 / 300 Lab / Micro Data 12/26/24 05:20 12/26/24 05:20 Labs: Laboratory Results - last 24 hr 12/25/24 13:43: POC Glucose 218 H 12/25/24 14:50: POC Glucose 263 H 12/25/24 16:48: POC Glucose 264 H 12/25/24 23:38: POC Glucose 393 H 12/26/24 05:20: WBC 12.3 H, RBC 4.29 L, Hgb 13.3, Hct 38.8 L, MCV 90.4, MCH 31.0, MCHC 34.3, RDW Std Deviation 47.6 H, RDW Coeff of Yasmani 14.4, Plt Count 338, MPV 8.6, Immature Gran % (Auto) 0.400, Neut % (Auto) 79.5 H, Lymph % (Auto) 7.3 L, [place] % (Auto) 12.6 H, Eos % (Auto) 0.0, Baso % (Auto) 0.2, Absolute Neuts (auto) 9.8 H, Absolute Lymphs (auto) 0.89, Nucleated RBC % 0, Differential Comment SCANNED, Sodium 129 L, Potassium 4.5, Chloride 94 L, Carbon Dioxide 18.9 L, Anion Gap 16 H, BUN 12, Creatinine 0.99, Estim Creat Clear Calc 78.38, Est GFR (MDRD) Non-Af 83, BUN/Creatinine Ratio 11.6, Glucose 330 H, Calcium 9.1 12/26/24 06:40: POC Glucose 327 H 12/26/24 11:41: POC Glucose 327 H Micro: Microbiology 12/15/24 09:09 Swab (Method) Nasal Screen MRSA/MSSA - Final Radiography Diagnostic Testing: Radiology Impression Lumbar Spine X-Ray 12/25/24 07:30 IMPRESSION: As above. Reading Location: [facility] Lumbar Spine X-Ray 12/26/24 05:00 IMPRESSION: Lumbar spine scoliosis and degeneration. Recent postoperative change without complication noted. Reading Location: [place] [address] Physical Exam Narrative Exams of the back and belly show incisions?CDI. Abdomen is soft. Neurologic motion lower extremity shows 5 x 5 power in all muscles normal sensations in all dermatomes. Assessment & Plan Assessment/Plan (1) Status post lumbar spinal fusion: PLAN: Plan Postop day 1 status post L2-5 fusion. X-rays done. Reviewed, look good. PT OT cleared. No flatus yet. Continue clear liquid diet until passes flatus, and then advance to regular diet. Discharge pending flatus and tolerating solid diet. Patient is diabetic with high sugar readings, will appreciate hospitalist comanagement and discharge medication recommendations.
[2024-12-26 14:17] VITALS: BP 129/94; PULSE 100; RESP 18; TEMP 36.8; O2SAT 100
--- NOTE | 2024-12-26 15:01 | CHAPLAIN ---
Type of Pastoral Visit _x__ Initial Visit ___ Follow-up Visit ___ On-call Visit ___ General Patient Visit ___ Spiritual Assessment ___ Family Conference ___ Bereavement ___ Rapid Response ___ Code Blue ___ Other (describe below) Pastoral Care Referral From _x__ Patient ___ Family ___ Nurse ___ Physician ___ Button Cutting Machine Operator ___ Warrant Server ___ Other (describe below) Sacrament/Intervention _x__ Active listening ___ Anointing ___ Confucianist ___ Bereavement ___ Communion _x__ Cindy exploration ___ _x__ Life review _x__ Prayer ___ Reconciliation ___ Sacrament of Sick ___ Supportive presence ___ Wedding ___ Other (describe below) Pastoral Comments patient is optimistic about his surgery and recovery but anxious to get discharged when ready; pt is talkative and shares life review; pt is expressive about his cindy journey and political thinking; lots of listening and supportive time; prayer welcomed
[2024-12-26 20:42] VITALS: BP 150/91; PULSE 92; RESP 16; TEMP 37; O2SAT 97
[2024-12-27 01:38] VITALS: BP 139/97; PULSE 80; RESP 16; TEMP 36.7; O2SAT 96
[2024-12-27 06:08] VITALS: BP 158/97; PULSE 87; RESP 18; TEMP 36.9; O2SAT 97
[2024-12-27 07:33] VITALS: BP 175/97; PULSE 84; RESP 18; TEMP 36.4; O2SAT 98
[2024-12-27] MEDS: Senna/Docusate Sodium 1 Tablet 2 TABLET PO (07:35)
[2024-12-27] MEDS: Insulin Glargine-YFGN 100 UNIT/ML Pen 10 UNIT SC (07:36)
--- NOTE | 2024-12-27 07:39 | PCM.DC ---
Discharge Instructions DC O2, CPAP, BIPAP needs Home O2 Discharge instructions: No Dressing / Incision Discharge Activity: Return to Normal Activity and Use Walker Weight Bearing Status: Weight bearing as tolerated Dressing / Incision Call your doctor if your incision/area has: Continuous Slow Oozing, Sudden Increased Bleeding, Increased Redness and Foul Smelling Discharge Call your doctor if you observe: Fever of 101 or Higher Remove Dressing in: 5 days Follow Up Care When: 2 weeks Test Results: Test results from this visit will be discussed in further detail at your follow-up appointment, if applicable. Discharge Plan Admission Admit Date/Time: 12/25/24 05:13 Primary Reason for Your Visit: Status post lumbar fusion Attending Provider: Bry Sal Primary Care Provider: Saira Mckenna NP Consulting Providers: Angie James Instructions Patient Instructions: Lumbar Fusion Dc Additional Instructions / Restrictions: Please keep dressing clean and dry. Okay to shower as long as Tegaderm is not peeling off. Remove Tegaderm and gauze in 5 days and replace with Band-Aids daily thereafter. No lifting bending twisting. Follow-up in clinic in 2 weeks. Discharge Orders/Prescriptions Prescriptions: New meloxicam 15 mg Tablet 15 mg PO DAILY 30 Days Qty: 30 0RF methocarbamol 500 mg Tablet 750 mg PO TID PRN (Reason: Pain/spasms) 7 Days Qty: 30 0RF sennosides-docusate sodium [Stimulant Laxative Plus] 8.6-50 mg Tablet 2 tab PO BID PRN (Reason: constipation) 7 Days Qty: 30 0RF hydrocodone-acetaminophen 5-300 mg tablet 1 tab PO Q6H PRN (Reason: pain) 7 Days Qty: 30 0RF Continued lisinopril 5 mg tablet 10 mg PO QDAY metformin 500 mg tablet 500 mg PO BID insulin lispro 100 unit/mL insulin pen 1 sliding scale dose subcut USEASDIRECTD insulin glargine [Lantus U-100 Insulin] 100 unit/mL solution 10 unit subcut BID lorazepam [Ativan] 1 mg tablet 1 mg PO BID PRN (Reason: claustrophobia) Qty: 2 0RF Rx Instructions: take 1 tablet one hour before the MRI, take second tablet when you arrive for the MRI Referrals / Follow Up: Saira Mckenna NP, DIRECTOR OF [employer]ATE[employer]IC [employer]ES[employer] [Primary Care Provider] - Disposition Disposition (needs filled in before D/C Order can be placed): Home, Self Care
--- NOTE | 2024-12-27 08:08 | PCM.PN.HOSP ---
Reason for Visit Chief Complaint: Back Pain Subjective Subjective Patient states he is overall doing better. Blood sugar on his home monitor is 202 today. We did discuss that this would likely get better as the steroids you are out of his system and the stress response is resolved. He voiced understanding. He states that his primary care physician just uptitrated his blood pressure medication recently. I encouraged him to follow-up with his PCP for reassessment as he is only on 10 mg of lisinopril and may need more. Patient voiced understanding. Objective Data Objective Data Vital Signs: Vital Signs Temp Pulse Resp BP Pulse Ox O2 Del Method O2 Flow Rate 97.6 F L 84 18 175/97 H 98 Room Air 2 12/27/24 07:33 12/27/24 07:33 12/27/24 07:33 12/27/24 07:33 12/27/24 07:33 12/27/24 07:33 12/25/24 23:40 Oxygen Flow Rate (L/min) 2 Oxygen Delivery Method Room Air Weight: 83.007 kg Body Mass Index (BMI) 24.8 Intake & Output: Intake and Output for Last 24 Hours 12/25/24 12/26/24 12/27/24 23:59 23:59 23:59 Intake Total 472 / 472 700 / 700 Output Total 1000 / 1000 Balance -528 / -528 700 / 700 Lab / Micro Data 12/26/24 05:20 12/26/24 05:20 Labs: Laboratory Results - last 24 hr 12/26/24 11:41: POC Glucose 327 H 12/26/24 16:45: POC Glucose 224 H 12/26/24 20:46: POC Glucose 246 H Micro: Microbiology 12/15/24 09:09 Swab (Method) Nasal Screen MRSA/MSSA - Final Physical Exam Const alert, oriented x3, no apparent distress, average body habitus, healthy appearing and well nourished Constitutional Narrative: Upper middle-aged, white male, sitting up in bed, eating breakfast and watching television, appears comfortable, nontoxic HEENT head/scalp atraumatic and moist oral mucous membranes Head and Scalp: normocephalic Extremity no clubbing, cyanosis or edema Extremity Narrative: 2+ pedal pulses Neuro Speech: speech normal Psych affect normal Psych Narrative: very pleasant Assessment & Plan Assessment/Plan (1) Status post lumbar spinal fusion: (2) Degenerative disc disease, lumbar: (3) Hyperglycemia: (4) Hypertension: PLAN: Plan DDD s/p 360 lumbar fusion -POD 2 -was given post op decadron -mgt per primary DM 1.5 with Hyperglycemia -likely stress response and decadron - Continue home Lantus dose at discharge and blood sugars should continue to improve once Decadron is out of system -SSI -continue metformin HTN -BP is elevated but 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 Dr. Sal notified. Charges/Coding Visit Charges Inpatient E&M: 40422 Subs Hosp L1
--- NOTE | 2024-12-27 10:40 | PHA.DC.MC.R ---
Pharmacy [facility] Counseling Pharmacy Service has performed discharge medication reconciliation and counseling for this patient. Patient requested medication delivery. This [facility] spoke to Radha in retail to request delivery. 1. NORCO 1T PO Q6H PRN PAIN 2. MELOXICAM 15MG PO DAILY 3. METHOCARBAMOL 750MG PO TID PRN MUSCLE PAIN/SPASMS 4. SENNA/DOCUSATE 2T PO BID PRN CONSTIPATION The patient's discharge medication list was reviewed for discrepancies and discrepancies were resolved. The patient was counseled on the following discharge medications and changes in medications for homegoing were reviewed. The Reason for Use, instructions for use, and potential side effects were reviewed for all new medications. The patient's questions regarding all of their medications were answered. The patient was able to verbally demonstrate an understanding of their discharge medications. Medications at Discharge Home Medications insulin glargine 100 unit/mL subcutaneous solution (Lantus U-100 Insulin) 10 unit subcut BID DIABETES 09/15/24 insulin lispro 100 unit/mL subcutaneous pen 1 sliding scale dose subcut USEASDIRECTD DIABETES 09/15/24 lisinopril 5 mg tablet 10 mg PO QDAY BP 09/15/24 metformin 500 mg tablet 500 mg PO BID DIABETES 09/15/24 lorazepam 1 mg tablet (Ativan) 1 mg PO BID PRN claustrophobia #2 tabs 09/20/24 hydrocodone 5 mg-acetaminophen 300 mg tablet 1 tab PO Q6H PRN pain 7 days #30 tabs 12/27/24 meloxicam 15 mg tablet 15 mg PO DAILY 30 days #30 tabs 12/27/24 methocarbamol 500 mg tablet 750 mg (1.5 x 500 mg) PO TID PRN Pain/spasms 7 days #30 tabs 12/27/24 sennosides 8.6 mg-docusate sodium 50 mg tablet (Stimulant Laxative Plus) 2 tab PO BID PRN constipation 7 days #30 tabs 12/27/24
== END 2024-12-27 11:29 | disposition home or self-care (01) | DRG 428 ==
PROVIDERS: Anesthesiology; Admitting Provider Orthopaedic Surgery Orthopaedic Surgery of the Spine; PCP Nurse Practitioner Family; Referring Provider Orthopaedic Surgery Orthopaedic Surgery of the Spine; Visit Provider Orthopaedic Surgery Orthopaedic Surgery of the Spine
PROC: 0SG10A0 Fusion of 2 or more Lumbar Vertebral Joints with Interbody Fusion Device, Anterior Approach, Anterior Column, Open Approach (ICD-10-PCS; principal; 2024-12-25 07:00)
DX: M51.369 Other intervertebral disc degeneration, lumbar region without mention of lumbar back pain or lower extremity pain (principal); E11.40 Type 2 diabetes mellitus with diabetic neuropathy, unspecified; I10 Essential (primary) hypertension; M48.062 Spinal stenosis, lumbar region with neurogenic claudication; E78.00 Pure hypercholesterolemia, unspecified; Z79.4 Long term (current) use of insulin; Z79.84 Long term (current) use of oral hypoglycemic drugs; Z87.891 Personal history of nicotine dependence; Z79.899 Other long term (current) drug therapy
CPT/HCPCS: 36415; 72100; 72110; 76000; 80048; 80053; 80076; 82962; 83036; 83735; 85025; 85610; 85730; 86703; 86706; 86708; 86803; 86850; 86900; 86901; 87077; 87081; 93005; 94668; 97161; 97165; A4648; C1713; A4216; J2405